=== PATIENT | female | born 1985 | race Caucasian/White ===

== ENCOUNTER 2017-09-01 18:41 | Observation (INO) ==
[2017-09-01 19:25] LABS: Bilirubin,Urine Negative (Negative); Blood,Urine Negative (Negative); Clarity,Urine Clear (Clear); Color,Urine Yellow (Yellow); Glucose,Urine (UA) Normal (Normal); Ketones,Urine Negative (Negative); Leukocyte Esterase,Urine Negative (Negative); Nitrite,Urine Negative (Negative); PH,Urine 6.5 pH Units (5.0-8.0); Protein,Urine Trace mg/dL (Neg-Trace); Specific Gravity,Urine 1.028 (1.010-1.025); Urobilinogen,Urine Normal (Normal)
[2017-09-01 19:28] LABS: Eosinophils % 3.2 %; Hematocrit 37.2 % (35.3-44.9); Hemoglobin 12.2 g/dL (11.5-15.4); Immature Granulocytes % 0.4 % (0-4); Lymphocytes % 17.1 %; Mean Corpuscular HGB Conc 32.8 g/dL (31.6-35.5); Mean Corpuscular Hemoglobin 32.4 pg (28.0-33.3); Mean Corpuscular Volume 98.7 fL (83.0-100.0); Mean Platelet Volume 9.1 fL (9.4-12.4); Monocytes % 6.1 %; Platelet Count 294 K/mcL (140-400); Red Blood Count 3.77 M/mcL (3.82-4.97); Red Cell Distribution Width 13.8 % (11.5-14.5); Segmented Neutrophils % 72.9 %
[2017-09-01 19:29] LABS: Hyaline Casts,Urine None Seen per lpf (None-Few); Squamous Epithelial Cell,Urine Many per lpf (None-Few)
[2017-09-01 19:29] LABS: Basophils % 0.3 %; Eosinophils # 0.4 K/mcL (0.0-0.6); Lymphocytes # 2.1 K/mcL (0.6-4.6); Monocytes # 0.8 K/mcL (0.0-1.3); Neutrophils # 8.9 K/mcL (1.6-8.9)
[2017-09-01 19:41] LABS: Bacteria,Urine Few per hpf (None-Few); RBC,Urine 0-3 per hpf (0-3)
[2017-09-01 19:45] LABS: Acetaminophen < 10 mcg/mL (10-20); BUN/Creatinine Ratio 13 (6-26); Blood Urea Nitrogen 15 mg/dL (6-20); Calcium 9.8 mg/dL (8.6-10.3); Carbon Dioxide 21 mEq/L (23-29); Chloride 112 mEq/L (98-107); Ethanol < 10 mg/dL (Less than 10); Glucose 105 mg/dL (70-105); Osmolality,Calculated 293 (280-300); Potassium 3.5 mEq/L (3.5-5.1); Salicylate < 2.5 mg/dL (15.0-30.0); Sodium 141 mEq/L (136-145); eGFR For African Americans > 60 (> 60); eGFR For Non-African Americans 56 (> 60)
[2017-09-01 19:46] LABS: Amphetamine Screen,Urine Negative ng/mL (Cutoff=1000); Barbiturate Screen,Urine Negative ng/mL (Cutoff=200); Benzodiazepines Screen,Urine Negative ng/mL (Cutoff=200); Cannabinoid Screen,Urine Negative ng/mL (Cutoff = 50); Cocaine Screen,Urine Negative ng/mL (Cutoff= 300); Opiate Screen,Urine Negative ng/mL (Cutoff=300); Phencyclidine Screen,Urine Negative ng/mL (Cutoff=25)
--- NOTE | 2017-09-01 21:21 | Emergency Department Note ---
Disposition Clinical Impression: Homicidal ideation Disposition: Admitted As Inpatient Condition: Fair Time of Disposition: 21:24 General Adult HPI - General Chief complaint: ED Psychiatric Symptoms Stated complaint: HI Time Seen by Provider: 09/01/17 19:16 Source: patient Mode of arrival: ambulatory Limitations: no limitations Nursing Notes Reviewed: Yes Vital Signs Reviewed: Yes - History of Present Illness HPI Narrative: Patient is a 32-year-old female with no pertinent past medical history presents today for evaluation of homicidal ideation. The patient states that she lives with her at this time and her has began dating another female and has moved her into the same home that they both occupy. She states that she wants to monitor her 's girlfriend, however she does not have a plan. She denies any suicidal ideation. Denies any visual or auditory hallucinations. She did recently undergo tubal ligation surgery in which she did incur a cellulitic infection of her surgical sites, however she is currently on an antibiotic regimen and the symptoms are improving. She denies any drug use or alcohol use. Pain Scale: 0 - Related Data Home Medications Medication Instructions Recorded Confirmed Aripiprazole [Abilify] 15 mg PO DAILY 09/01/17 09/01/17 Calcium Carbonate/Vitamin D3 1 tab PO DAILY 09/01/17 09/01/17 [Oyster Shell Calcium-Vit D Tab] Cetirizine HCl [Cetirizine HCl] 10 mg PO DAILY 09/01/17 09/01/17 Cyclobenzaprine [Flexeril] 10 mg PO TID PRN 09/01/17 09/01/17 DiphenhydraMINE [Benadryl] 25 mg PO Q6HR 09/01/17 09/01/17 Doxycycline Hyclate [Vibramycin] 100 mg PO BID 09/01/17 09/01/17 Fluticasone Propionate Nasal 1 spr NS DAILY 09/01/17 09/01/17 [Flonase] Gabapentin [Neurontin] 800 mg PO TID 09/01/17 09/01/17 Ibuprofen [Ibuprofen] 800 mg PO TID 09/01/17 09/01/17 [place]ena Carbonate ER [Eskalith] 900 mg PO HS 09/01/17 09/01/17 Melatonin [Melatonin] 6 mg PO HS 09/01/17 09/01/17 Montelukast [Singulair] 10 mg PO DAILY 09/01/17 09/01/17 Oxybutynin Chloride [Ditropan Xl] 5 mg PO DAILY 09/01/17 09/01/17 Prazosin HCl [Minipress] 6 mg PO HS 09/01/17 09/01/17 Propranolol HCl 80 mg PO DAILY 09/01/17 09/01/17 Ranitidine HCl [Acid Chemical Packager] 150 mg PO BID 09/01/17 09/01/17 clonazePAM [Klonopin] 1 mg PO TID 09/01/17 09/01/17 hydroCHLOROthiazide 12.5 mg PO DAILY 09/01/17 09/01/17 [Hydrochlorothiazide] Allergies Allergy/AdvReac Type Severity Reaction Status Date / Time cephalexin Allergy Severe Hives Verified 08/14/17 15:50 fluticasone [From Flonase] Allergy Hives Verified 08/21/17 19:54 All systems ED: reviewed and negative except as stated. Review of Systems: As Per HPI Constitutional: Denies: fever, chills Cardiovascular: Denies: chest pain, palpitations Respiratory: Denies: cough, dyspnea, wheezes Gastrointestinal: Denies: abdominal pain, nausea, vomiting Genitourinary: Denies: dysuria Psychiatric: Reports: homicidal thoughts. Denies: anxiety, suicidal thoughts, auditory hallucinations, visual hallucinations Past Medical History - Past Medical History Attestation: Yes The following information was validated with the patient. Medical history: Reports: other Surgical history: Reports: cholecystectomy, other (tubal ligation) Psychiatric history: Reports: anxiety, depression, previous psychiatric hospitalization [employer]ELD history: Reports: bilateral tubal ligation - Social History Smoking Status: Never smoker Smokeless Tobacco Status: No Alcohol use: Reports: none Drug use: Reports: none Physical Exam CONSTITUTIONAL: Alert and oriented X3, well-nourished, well appearing, in no apparent distress HEAD: Normocephalic; atraumatic. EYES: PERRL, no scleral icterus. NOSE: The nose is normal in appearance without rhinorrhea RESP: Normal chest excursion with respiration; breath sounds clear and equal bilaterally; no wheezes, rhonchi, or rales CARD: Regular rhythm, without murmurs, rub or gallop ABD: Non-distended; non-tender, soft,without rigidity, rebound or guarding SKIN: Two well-healing wound from recent surgery in the suprapubic region with no drainage, erythema, induration, fluctuance or drainage. SKIN: Normal for age and race; warm and dry; no apparent lesionsPSYCH: Denies visual or auditory hallucinations. Flat affect. Admits to homicidal ideation. No SI. - General Limitations: no limitations General appearance: alert Course Course Narrative: Patient is here for homicidal ideation towards her 's girlfriend. She is medically cleared and her drug screen workup was negative. Currently being seen by one a nurse which will determine patient's disposition. - Reevaluation(s) Reevaluation #1: 1A nurse states patient will be accepted to the floor. Time: 21:28 Vital Signs Temperature 82 F L 09/01/17 18:47 Pulse Rate 82 09/01/17 18:47 Respiratory Rate 16 09/01/17 18:47 Blood Pressure 131/85 09/01/17 18:47 O2 Sat by Pulse Oximetry 99 09/01/17 18:47 Temperature 82 F L 09/01/17 19:12 Pulse Rate 82 09/01/17 19:12 Respiratory Rate 16 09/01/17 19:12 Blood Pressure 131/85 09/01/17 19:12 O2 Sat by Pulse Oximetry 99 09/01/17 19:12 Oxygen Delivery Oxygen Delivery Room Air Medical Decision Making - Medical Records Medical records reviewed: Yes I reviewed the patient's medical records. - Lab Data Lab results reviewed: Yes I reviewed the patient's lab results. Result diagrams: 09/01/17 19:11 09/01/17 19:11 Lab Results 09/01/17 09/01/17 09/01/17 Range/Units 19:01 19:01 19:11 WBC 12.2 H (4.3-11.1) K/mcL RBC 3.77 L (3.82-4.97) M/mcL Hgb 12.2 (11.5-15.4) g/dL Hct 37.2 (35.3-44.9) % MCV 98.7 (83.0-100.0) fL MCH 32.4 (28.0-33.3) pg MCHC 32.8 (31.6-35.5) g/dL RDW 13.8 (11.5-14.5) % Plt Count 294 (140-400) K/mcL MPV 9.1 L (9.4-12.4) fL Immature Gran % 0.4 (0-4) % Seg Neutrophils % 72.9 % Lymphocytes % 17.1 % Monocytes % 6.1 % Eosinophils % 3.2 % Basophils % 0.3 % Neutrophils # 8.9 (1.6-8.9) K/mcL Lymphocytes # 2.1 (0.6-4.6) K/mcL Monocytes # 0.8 (0.0-1.3) K/mcL Eosinophils # 0.4 (0.0-0.6) K/mcL Basophils # 0.0 (0.0-0.2) K/mcL Sodium (136-145) mEq/L Potassium (3.5-5.1) mEq/L Chloride (98-107) mEq/L Carbon Dioxide (23-29) mEq/L BUN (6-20) mg/dL Creatinine (0.60-1.20) mg/dL Est GFR ( Amer) (> 60) Est GFR (Non-Af Amer) (> 60) BUN/Creatinine Ratio (6-26) Glucose (70-105) mg/dL Calculated Osmolality (280-300) Calcium (8.6-10.3) mg/dL Urine Color Yellow (Yellow) Urine Clarity Clear (Clear) Urine pH 6.5 (5.0-8.0) pH Units Ur Specific [place] 1.028 H (1.010-1.025) Urine Protein Trace (Neg-Trace) mg/dL Urine Glucose (UA) Normal (Normal) mg/dL Urine Ketones Negative (Negative) mg/dL Urine Blood Negative (Negative) Urine Nitrite Negative (Negative) Urine Bilirubin Negative (Negative) Urine Urobilinogen Normal (Normal) mg/dL Ur Leukocyte Esterase Negative (Negative) Urine Microscopic RBC 0-3 (0-3) per hpf Urine Microscopic WBC 3-5 H (0-3) per hpf Ur Squamous Epith Cells Many H (None-Few) per lpf Urine Bacteria Few (None-Few) per hpf Hyaline Casts None Seen (None-Few) per lpf Salicylates (15.0-30.0) mg/dL Urine Opiates Screen Negative (Gdgcmx=234) ng/mL Acetaminophen (10-20) mcg/mL Ur Barbiturates Screen Negative (Tbfdms=202) ng/mL Ur Phencyclidine Scrn Negative (Cutoff=25) ng/mL Ur Amphetamines Screen Negative (Zfqmuu=9787) ng/mL U Benzodiazepines Scrn Negative (Qmxjkn=517) ng/mL [place] (0.6-1.2) mEq/L Urine Cocaine Screen Negative (Cutoff= 300) ng/mL U Marijuana (THC) Screen Negative (Cutoff = 50) ng/mL Ur Drug Screen Interp See Below Ethyl Alcohol (Less than 10) mg/dL 09/01/17 09/01/17 Range/Units 19:11 19:11 WBC (4.3-11.1) K/mcL RBC (3.82-4.97) M/mcL Hgb (11.5-15.4) g/dL Hct (35.3-44.9) % MCV (83.0-100.0) fL MCH (28.0-33.3) pg MCHC (31.6-35.5) g/dL RDW (11.5-14.5) % Plt Count (140-400) K/mcL MPV (9.4-12.4) fL Immature Gran % (0-4) % Seg Neutrophils % % Lymphocytes % % Monocytes % % Eosinophils % % Basophils % % Neutrophils # (1.6-8.9) K/mcL Lymphocytes # (0.6-4.6) K/mcL Monocytes # (0.0-1.3) K/mcL Eosinophils # (0.0-0.6) K/mcL Basophils # (0.0-0.2) K/mcL Sodium 141 (136-145) mEq/L Potassium 3.5 (3.5-5.1) mEq/L Chloride 112 H (98-107) mEq/L Carbon Dioxide 21 L (23-29) mEq/L BUN 15 (6-20) mg/dL Creatinine 1.12 (0.60-1.20) mg/dL Est GFR ( Amer) > 60 (> 60) Est GFR (Non-Af Amer) 56 L (> 60) BUN/Creatinine Ratio 13 (6-26) Glucose 105 (70-105) mg/dL Calculated Osmolality 293 (280-300) Calcium 9.8 (8.6-10.3) mg/dL Urine Color (Yellow) Urine Clarity (Clear) Urine pH (5.0-8.0) pH Units Ur Specific [place] (1.010-1.025) Urine Protein (Neg-Trace) mg/dL Urine Glucose (UA) (Normal) mg/dL Urine Ketones (Negative) mg/dL Urine Blood (Negative) Urine Nitrite (Negative) Urine Bilirubin (Negative) Urine Urobilinogen (Normal) mg/dL Ur Leukocyte Esterase (Negative) Urine Microscopic RBC (0-3) per hpf Urine Microscopic WBC (0-3) per hpf Ur Squamous Epith Cells (None-Few) per lpf Urine Bacteria (None-Few) per hpf Hyaline Casts (None-Few) per lpf Salicylates < 2.5 L (15.0-30.0) mg/dL Urine Opiates Screen (Cyxblf=988) ng/mL Acetaminophen < 10 L (10-20) mcg/mL Ur Barbiturates Screen (Unkato=322) ng/mL Ur Phencyclidine Scrn (Cutoff=25) ng/mL Ur Amphetamines Screen (Yltuvw=9915) ng/mL U Benzodiazepines Scrn (Qsotzg=003) ng/mL [place] 0.5 L (0.6-1.2) mEq/L Urine Cocaine Screen (Cutoff= 300) ng/mL U Marijuana (THC) Screen (Cutoff = 50) ng/mL Ur Drug Screen Interp Ethyl Alcohol < 10 (Less than 10) mg/dL
--- NOTE | 2017-09-01 21:36 | Emergency Department Note ---
Disposition Clinical Impression: Homicidal ideation Disposition: Admitted As Inpatient Condition: Fair Referrals: NONE,PCP [Primary Care Provider] - Forms: ED Satisfaction Letter General Adult HPI - General Chief complaint: ED Psychiatric Symptoms Stated complaint: HI Time Seen by Provider: 09/01/17 19:16 Source: patient Mode of arrival: ambulatory Limitations: no limitations Nursing Notes Reviewed: Yes Vital Signs Reviewed: Yes - History of Present Illness Pain Scale: 0 - Related Data Home Medications Medication Instructions Recorded Confirmed Gabapentin 800 mg PO TID 01/01/17 08/21/17 Klonopin 1 mg PO DAILY 01/01/17 08/21/17 [place] 300 mg PO TID 01/01/17 08/21/17 ARIPiprazole [Abilify] 10 mg PO DAILY 08/21/17 08/21/17 Cetirizine HCl [Zyrtec] 10 mg PO DAILY 08/21/17 08/21/17 DiphenhydraMINE [Benadryl] 25 mg PO HS 08/21/17 08/21/17 Ergotamine Tartrate/Caffeine 1 - 100 mg PO DAILY 08/21/17 08/21/17 [Cafergot Tablet] Ibuprofen [Ibu] 800 mg PO TID 08/21/17 08/21/17 Oxybutynin [Ditropan] 5 mg PO DAILY 08/21/17 08/21/17 Propranolol HCl [Innopran Xl] 80 mg PO DAILY 08/21/17 08/21/17 raNITIdine HCl [Zantac] 150 mg PO DAILY 08/21/17 08/21/17 Previous Rx's Medication Instructions Recorded DiphenhydraMINE [Benadryl] 25 mg PO Q6HR #28 capsule 08/28/17 Doxycycline 100 mg PO BID #10 capsule 08/28/17 Allergies Allergy/AdvReac Type Severity Reaction Status Date / Time cephalexin Allergy Severe Hives Verified 08/14/17 15:50 fluticasone [From Flonase] Allergy Hives Verified 08/21/17 19:54 Constitutional: Denies: fever, chills Cardiovascular: Denies: chest pain, palpitations Respiratory: Denies: cough, dyspnea, wheezes Gastrointestinal: Denies: abdominal pain, nausea, vomiting Genitourinary: Denies: dysuria Psychiatric: Reports: homicidal thoughts. 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 - Social History Smoking Status: Never smoker Smokeless Tobacco Status: No Alcohol use: Reports: none Drug use: Reports: none Physical Exam - General Limitations: no limitations General appearance: alert Course Vital Signs Temperature 82 F L 09/01/17 18:47 Pulse Rate 82 09/01/17 18:47 Respiratory Rate 16 09/01/17 18:47 Blood Pressure 131/85 09/01/17 18:47 O2 Sat by Pulse Oximetry 99 09/01/17 18:47 Temperature 82 F L 09/01/17 19:12 Pulse Rate 82 09/01/17 19:12 Respiratory Rate 16 09/01/17 19:12 Blood Pressure 131/85 09/01/17 19:12 O2 Sat by Pulse Oximetry 99 09/01/17 19:12 Oxygen Delivery Oxygen Delivery Room Air Medical Decision Making - Lab Data Result diagrams: 09/01/17 19:11 09/01/17 19:11 Lab Results 09/01/17 09/01/17 09/01/17 Range/Units 19:01 19:01 19:11 WBC 12.2 H (4.3-11.1) K/mcL RBC 3.77 L (3.82-4.97) M/mcL Hgb 12.2 (11.5-15.4) g/dL Hct 37.2 (35.3-44.9) % MCV 98.7 (83.0-100.0) fL MCH 32.4 (28.0-33.3) pg MCHC 32.8 (31.6-35.5) g/dL RDW 13.8 (11.5-14.5) % Plt Count 294 (140-400) K/mcL MPV 9.1 L (9.4-12.4) fL Immature Gran % 0.4 (0-4) % Seg Neutrophils % 72.9 % Lymphocytes % 17.1 % Monocytes % 6.1 % Eosinophils % 3.2 % Basophils % 0.3 % Neutrophils # 8.9 (1.6-8.9) K/mcL Lymphocytes # 2.1 (0.6-4.6) K/mcL Monocytes # 0.8 (0.0-1.3) K/mcL Eosinophils # 0.4 (0.0-0.6) K/mcL Basophils # 0.0 (0.0-0.2) K/mcL Sodium (136-145) mEq/L Potassium (3.5-5.1) mEq/L Chloride (98-107) mEq/L Carbon Dioxide (23-29) mEq/L BUN (6-20) mg/dL Creatinine (0.60-1.20) mg/dL Est GFR ( Amer) (> 60) Est GFR (Non-Af Amer) (> 60) BUN/Creatinine Ratio (6-26) Glucose (70-105) mg/dL Calculated Osmolality (280-300) Calcium (8.6-10.3) mg/dL Urine Color Yellow (Yellow) Urine Clarity Clear (Clear) Urine pH 6.5 (5.0-8.0) pH Units Ur Specific [place] 1.028 H (1.010-1.025) Urine Protein Trace (Neg-Trace) mg/dL Urine Glucose (UA) Normal (Normal) mg/dL Urine Ketones Negative (Negative) mg/dL Urine Blood Negative (Negative) Urine Nitrite Negative (Negative) Urine Bilirubin Negative (Negative) Urine Urobilinogen Normal (Normal) mg/dL Ur Leukocyte Esterase Negative (Negative) Urine Microscopic RBC 0-3 (0-3) per hpf Urine Microscopic WBC 3-5 H (0-3) per hpf Ur Squamous Epith Cells Many H (None-Few) per lpf Urine Bacteria Few (None-Few) per hpf Hyaline Casts None Seen (None-Few) per lpf Salicylates (15.0-30.0) mg/dL Urine Opiates Screen Negative (Fovodh=372) ng/mL Acetaminophen (10-20) mcg/mL Ur Barbiturates Screen Negative (Nalbln=426) ng/mL Ur Phencyclidine Scrn Negative (Cutoff=25) ng/mL Ur Amphetamines Screen Negative (Rmtyxb=5559) ng/mL U Benzodiazepines Scrn Negative (Fwtoeu=688) ng/mL Urine Cocaine Screen Negative (Cutoff= 300) ng/mL U Marijuana (THC) Screen Negative (Cutoff = 50) ng/mL Ur Drug Screen Interp See Below Ethyl Alcohol (Less than 10) mg/dL 09/01/17 Range/Units 19:11 WBC (4.3-11.1) K/mcL RBC (3.82-4.97) M/mcL Hgb (11.5-15.4) g/dL Hct (35.3-44.9) % MCV (83.0-100.0) fL MCH (28.0-33.3) pg MCHC (31.6-35.5) g/dL RDW (11.5-14.5) % Plt Count (140-400) K/mcL MPV (9.4-12.4) fL Immature Gran % (0-4) % Seg Neutrophils % % Lymphocytes % % Monocytes % % Eosinophils % % Basophils % % Neutrophils # (1.6-8.9) K/mcL Lymphocytes # (0.6-4.6) K/mcL Monocytes # (0.0-1.3) K/mcL Eosinophils # (0.0-0.6) K/mcL Basophils # (0.0-0.2) K/mcL Sodium 141 (136-145) mEq/L Potassium 3.5 (3.5-5.1) mEq/L Chloride 112 H (98-107) mEq/L Carbon Dioxide 21 L (23-29) mEq/L BUN 15 (6-20) mg/dL Creatinine 1.12 (0.60-1.20) mg/dL Est GFR ( Amer) > 60 (> 60) Est GFR (Non-Af Amer) 56 L (> 60) BUN/Creatinine Ratio 13 (6-26) Glucose 105 (70-105) mg/dL Calculated Osmolality 293 (280-300) Calcium 9.8 (8.6-10.3) mg/dL Urine Color (Yellow) Urine Clarity (Clear) Urine pH (5.0-8.0) pH Units Ur Specific [place] (1.010-1.025) Urine Protein (Neg-Trace) mg/dL Urine Glucose (UA) (Normal) mg/dL Urine Ketones (Negative) mg/dL Urine Blood (Negative) Urine Nitrite (Negative) Urine Bilirubin (Negative) Urine Urobilinogen (Normal) mg/dL Ur Leukocyte Esterase (Negative) Urine Microscopic RBC (0-3) per hpf Urine Microscopic WBC (0-3) per hpf Ur Squamous Epith Cells (None-Few) per lpf Urine Bacteria (None-Few) per hpf Hyaline Casts (None-Few) per lpf Salicylates < 2.5 L (15.0-30.0) mg/dL Urine Opiates Screen (Nhhsau=160) ng/mL Acetaminophen < 10 L (10-20) mcg/mL Ur Barbiturates Screen (Hsdjey=642) ng/mL Ur Phencyclidine Scrn (Cutoff=25) ng/mL Ur Amphetamines Screen (Zeoeep=7130) ng/mL U Benzodiazepines Scrn (Qhnjpj=110) ng/mL Urine Cocaine Screen (Cutoff= 300) ng/mL U Marijuana (THC) Screen (Cutoff = 50) ng/mL Ur Drug Screen Interp Ethyl Alcohol < 10 (Less than 10) mg/dL Attestation Statement - Attestation Attestation: I, Julio César Mcleod MD, personally evaluated this patient and discussed their management with the resident physician. I reviewed the resident's note and agree with the documented findings, medical decision making, and plan of care. 32-year-old female presents to the emergency department with a complaint of homicidal ideations towards her and her 's girlfriend. She states that her moved his girlfriend into their home where she is still living and they are "doing things in front of me and I want to kill them both". She denies any suicidal ideation. No specific plan for harming her and his girlfriend. No physical complaints. On examination patient is a well-developed obese female in no acute distress. She is alert and oriented 3. There is no cyanosis or diaphoresis. Breath sounds are clear and equal bilaterally. Heart regular rate and rhythm. Abdomen soft and nontender with normal bowel sounds. No gross focal neurological deficits. Labs reviewed. Patiently medically cleared for psychiatric evaluation. She was evaluated in the emergency department by the [address] psychiatry service and is being admitted to the [address] psychiatric unit.
[2017-09-02] MEDS ORDERED: hydrOXYzine pamoate 25 MG CAPSULE PO PRN (03:34)
[2017-09-02] MEDS ORDERED: MOM Conc 10 ML UD.LIQ PO PRN (03:34)
[2017-09-02] MEDS ORDERED: *HR* LORazepam 2 MG/ML VIAL IM PRN (03:34)
[2017-09-02] MEDS ORDERED: traZODone 50 MG TABLET PO PRN (03:34)
[2017-09-02] MEDS ORDERED: Mag Hydrox/Al Hydrox/Simeth 30 ML UDC PO PRN (03:34)
[2017-09-02] MEDS ORDERED: Haloperidol Lactate 5 MG/ML VIAL IM PRN (03:34)
[2017-09-02] MEDS ORDERED: *HR* LORazepam 1 MG TABLET PO PRN (03:34)
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
[2017-09-02] MEDS ORDERED: clonazePAM 1 MG TABLET PO PRN (12:34)
[2017-09-02] MEDS: ARIPiprazole 10 MG TABLET PO SCH (13:18)
[2017-09-02] MEDS: Famotidine 20 MG TABLET PO SCH (17:27)
[2017-09-02] MEDS ORDERED: Melatonin 3 MG TABLET PO SCH (21:00)
[2017-09-02] MEDS ORDERED: Lithium Carbonate 300 MG CAPSULE PO SCH (21:00)
[2017-09-03] MEDS: Ibuprofen 400 MG TABLET PO PRN ×2 (05:50→09:27)
[2017-09-03] MEDS: Famotidine 20 MG TABLET PO SCH (08:04)
[2017-09-03] MEDS: ARIPiprazole 10 MG TABLET PO SCH (08:05)
[2017-09-03 08:34] VITALS: BP 105/67
[2017-09-03] MEDS ORDERED: ARIPiprazole 10 MG TABLET PO SCH (09:00)
[2017-09-03] MEDS ORDERED: Loratadine 10 MG TABLET PO SCH (09:00)
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
== END 2017-09-03 10:00 | disposition home or self-care (01) ==
LOC: EMEROO 18:41 → INTOOBSV 21:37 → 1ANU 21:37
PROVIDERS: ADMIT Psychiatry & Neurology Forensic Psychiatry; ATTEND Psychiatry & Neurology Forensic Psychiatry

== ENCOUNTER 2018-07-10 13:12 | Inpatient (IN) ==
--- NOTE | 2018-07-10 13:53 | Emergency Department Note ---
Disposition Clinical Impression: Acute anxiety, Depression Disposition: Admitted As Inpatient Condition: Undetermined General Adult HPI - General Chief complaint: ED Psychiatric Symptoms Stated complaint: psych eval, depression Time Seen by Provider: 07/10/18 13:46 Source: patient Limitations: no limitations - History of Present Illness Pain Scale: 0 - Related Data Home Medications Medication Instructions Recorded Confirmed Calcium Carbonate/Vitamin D3 1 tab PO DAILY 09/01/17 09/01/17 [Oyster Shell Calcium-Vit D Tab] Cetirizine HCl 10 mg PO DAILY 09/01/17 07/10/18 Cyclobenzaprine [Flexeril] 10 mg PO HS 09/01/17 07/10/18 DiphenhydraMINE [Benadryl] 25 mg PO BID PRN 09/01/17 07/10/18 Ibuprofen 800 mg PO TID PRN 09/01/17 07/10/18 Melatonin 6 mg PO HS 09/01/17 07/10/18 Prazosin HCl [Minipress] 2 mg PO HS 09/01/17 07/10/18 Propranolol HCl 80 mg PO DAILY 09/01/17 07/10/18 Ranitidine HCl [Acid Truck Switcher] 150 mg PO BID 09/01/17 07/10/18 clonazePAM [Klonopin] 1 mg PO BID PRN 09/01/17 07/10/18 Acetaminophen with Codeine 1 tab PO Q4-6H PRN 07/10/18 07/10/18 [Acetaminophen-Cod #3 Tablet] Albuterol Sulfate [Albuterol 1 puff IH Q6H PRN 07/10/18 07/10/18 Inhaler] Amoxicillin [Amoxil] 500 mg PO TID 07/10/18 07/10/18 Desvenlafaxine Succinate 50 mg PO DAILY 07/10/18 07/10/18 [Desvenlafaxine Succinate ER] [place] Carbonate 900 mg PO HS 07/10/18 07/10/18 cloNIDine HCl [CloNIDine HCl] 0.1 mg PO DAILY PRN 07/10/18 07/10/18 hydrOXYzine pamoate [HydrOXYzine 50 mg PO BID PRN 07/10/18 07/10/18 Pamoate] Allergies Allergy/AdvReac Type Severity Reaction Status Date / Time cephalexin Allergy Severe Hives Verified 05/11/18 10:35 fluticasone [From Flonase] Allergy Hives Verified 05/11/18 10:35 Past Medical History - Past Medical History Medical history: Reports: no medical history Surgical history: Reports: cholecystectomy, other (tubal ligation) Psychiatric history: Reports: previous psychiatric hospitalization 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 - Social History Smoking Status: Never smoker Smokeless Tobacco Status: No Alcohol use: Reports: none Drug use: Reports: none Physical Exam - General Limitations: no limitations General appearance: alert Course Vital Signs Temperature 98.6 F 07/10/18 13:14 Pulse Rate 111 07/10/18 13:14 Respiratory Rate 18 07/10/18 13:14 Blood Pressure 153/103 07/10/18 13:14 O2 Sat by Pulse Oximetry 96 07/10/18 13:14 Temperature 98.4 F 07/11/18 20:44 Pulse Rate 88 07/11/18 20:44 Respiratory Rate 16 07/11/18 20:44 Blood Pressure 125/90 07/11/18 20:44 O2 Sat by Pulse Oximetry 99 07/11/18 20:44 Oxygen Delivery Oxygen Delivery Room Air Medical Decision Making - Lab Data Result diagrams: 07/10/18 14:00 07/10/18 14:00 Lab Results 07/10/18 07/10/18 07/10/18 Range/Units 14:00 14:00 14:00 WBC 13.8 H (4.3-11.1) K/mcL RBC 4.77 (3.82-4.97) M/mcL Hgb 15.2 (11.5-15.4) g/dL Hct 44.7 (35.3-44.9) % MCV 93.7 (83.0-100.0) fL MCH 31.9 (28.0-33.3) pg MCHC 34.0 (31.6-35.5) g/dL RDW 13.4 (11.5-14.5) % Plt Count 366 (140-400) K/mcL MPV 8.8 L (9.4-12.4) fL Immature Gran % 0.2 (0-4) % Seg Neutrophils % 70.1 % Lymphocytes % 20.0 % Monocytes % 8.2 % Eosinophils % 1.1 % Basophils % 0.4 % Neutrophils # 9.7 H (1.6-8.9) K/mcL Lymphocytes # 2.8 (0.6-4.6) K/mcL Monocytes # 1.1 (0.0-1.3) K/mcL Eosinophils # 0.2 (0.0-0.6) K/mcL Basophils # 0.1 (0.0-0.2) K/mcL Sodium 141 (136-145) mEq/L Potassium 3.4 L (3.5-5.1) mEq/L Chloride 108 H (98-107) mEq/L Carbon Dioxide 20 L (23-29) mEq/L BUN 10 (6-20) mg/dL Creatinine 0.75 (0.60-1.20) mg/dL Est GFR ( Amer) > 60 (> 60) Est GFR (Non-Af Amer) > 60 (> 60) BUN/Creatinine Ratio 13 (6-26) Glucose 107 H (70-105) mg/dL Calculated Osmolality 292 (280-300) Calcium 10.3 (8.6-10.3) mg/dL Total Bilirubin 0.9 (0.3-1.0) mg/dL Direct Bilirubin 0.2 (0.0-0.2) mg/dL Indirect Bilirubin 0.7 (0.0-1.2) mg/dL AST 19 (13-39) Units/L ALT 48 (7-52) Units/L Alkaline Phosphatase 128 H (34-104) Units/L Serum Total Protein 8.3 (6.4-8.9) g/dL Albumin 4.7 (3.5-5.7) g/dL Globulin 3.6 H (2.4-3.5) g/dL Albumin/Globulin Ratio 1.3 (1.1-2.2) Lipase 22 (11-82) Units/L Urine Color (Yellow) Urine Clarity (Clear) Urine pH (5.0-8.0) pH Units Ur Specific [place] (1.010-1.025) Urine Protein (Neg-Trace) mg/dL Urine Glucose (UA) (Normal) mg/dL Urine Ketones (Negative) mg/dL Urine Blood (Negative) Urine Nitrite (Negative) Urine Bilirubin (Negative) Urine Urobilinogen (Normal) mg/dL Ur Leukocyte Esterase (Negative) Urine Microscopic RBC (0-3) per hpf Urine Microscopic WBC (0-3) per hpf Ur Squamous Epith Cells (None-Few) per lpf Urine Bacteria (None-Few) per hpf Hyaline Casts (None-Few) per lpf Urine Mucus (Few) Ur Culture Indicated? (NO) Urine Test (Negative) Salicylates < 2.5 L (15.0-30.0) mg/dL Urine Opiates Screen (Vianvq=221) ng/mL Acetaminophen < 10 L (10-20) mcg/mL Ur Barbiturates Screen (Qpxglf=123) ng/mL Ur Phencyclidine Scrn (Cutoff=25) ng/mL Ur Amphetamines Screen (Hvpfyo=9035) ng/mL U Benzodiazepines Scrn (Hmagfq=521) ng/mL [place] 0.4 L (0.6-1.2) mEq/L Urine Cocaine Screen (Cutoff= 300) ng/mL U Marijuana (THC) Screen (Cutoff = 50) ng/mL Ur Drug Screen Interp Ethyl Alcohol < 10 (Less than 10) mg/dL 07/10/18 07/10/18 07/10/18 Range/Units 14:50 14:50 14:50 WBC (4.3-11.1) K/mcL RBC (3.82-4.97) M/mcL Hgb (11.5-15.4) g/dL Hct (35.3-44.9) % MCV (83.0-100.0) fL MCH (28.0-33.3) pg MCHC (31.6-35.5) g/dL RDW (11.5-14.5) % Plt Count (140-400) K/mcL MPV (9.4-12.4) fL Immature Gran % (0-4) % Seg Neutrophils % % Lymphocytes % % Monocytes % % Eosinophils % % Basophils % % Neutrophils # (1.6-8.9) K/mcL Lymphocytes # (0.6-4.6) K/mcL Monocytes # (0.0-1.3) K/mcL Eosinophils # (0.0-0.6) K/mcL Basophils # (0.0-0.2) K/mcL Sodium (136-145) mEq/L Potassium (3.5-5.1) mEq/L Chloride (98-107) mEq/L Carbon Dioxide (23-29) mEq/L BUN (6-20) mg/dL Creatinine (0.60-1.20) mg/dL Est GFR ( Amer) (> 60) Est GFR (Non-Af Amer) (> 60) BUN/Creatinine Ratio (6-26) Glucose (70-105) mg/dL Calculated Osmolality (280-300) Calcium (8.6-10.3) mg/dL Total Bilirubin (0.3-1.0) mg/dL Direct Bilirubin (0.0-0.2) mg/dL Indirect Bilirubin (0.0-1.2) mg/dL AST (13-39) Units/L ALT (7-52) Units/L Alkaline Phosphatase (34-104) Units/L Serum Total Protein (6.4-8.9) g/dL Albumin (3.5-5.7) g/dL Globulin (2.4-3.5) g/dL Albumin/Globulin Ratio (1.1-2.2) Lipase (11-82) Units/L Urine Color Dark Yellow (Yellow) Urine Clarity Turbid A (Clear) Urine pH 7.0 (5.0-8.0) pH Units Ur Specific [place] 1.024 (1.010-1.025) Urine Protein 100 H (Neg-Trace) mg/dL Urine Glucose (UA) Normal (Normal) mg/dL Urine Ketones 40 H (Negative) mg/dL Urine Blood Negative (Negative) Urine Nitrite Negative (Negative) Urine Bilirubin Small H (Negative) Urine Urobilinogen Normal (Normal) mg/dL Ur Leukocyte Esterase Trace H (Negative) Urine Microscopic RBC 0-3 (0-3) per hpf Urine Microscopic WBC 5-15 H (0-3) per hpf Ur Squamous Epith Cells Many H (None-Few) per lpf Urine Bacteria Many H (None-Few) per hpf Hyaline Casts None Seen (None-Few) per lpf Urine Mucus Moderate H (Few) Ur Culture Indicated? YES A (NO) Urine Test Negative (Negative) Salicylates (15.0-30.0) mg/dL Urine Opiates Screen Positive H (Xqetrm=750) ng/mL Acetaminophen (10-20) mcg/mL Ur Barbiturates Screen Negative (Tybjox=035) ng/mL Ur Phencyclidine Scrn Negative (Cutoff=25) ng/mL Ur Amphetamines Screen Negative (Rrzujw=5795) ng/mL U Benzodiazepines Scrn Negative (Kwtzdy=443) ng/mL [place] (0.6-1.2) mEq/L Urine Cocaine Screen Negative (Cutoff= 300) ng/mL U Marijuana (THC) Screen Negative (Cutoff = 50) ng/mL Ur Drug Screen Interp See Below Ethyl Alcohol (Less than 10) mg/dL Attestation Statement - Attestation Attestation: I reviewed the residents documentation and agree with the residents assessment and plan of care. I have personally had face to face time with the patient. (Brief History, Brief Exam, and MDM) I personally supervised and was present for the landaverde/critical portions of the following procedures completed by the resident: (add procedures performed here). [id number] time provided Patient arrives tearful and anxious. She admits to being depressed. She is not suicidal. We will attempt to clear her medically for mental health evaluation
--- NOTE | 2018-07-10 13:57 | Emergency Department Note ---
Disposition Clinical Impression: Acute anxiety Depression Qualifiers: Depression Type: unspecified Qualified Code(s): F32.9 - Major depressive disorder, single episode, unspecified Disposition: Still a Patient Condition: Undetermined Referrals: Nena Wyman [Advanced Practice Nurse] - Forms: ED Satisfaction Letter Time of Disposition: 17:02 Psych HPI - General Chief Complaint: ED Psychiatric Symptoms Stated Complaint: psych eval, depression Time Seen by Provider: 07/10/18 13:46 Source: patient Limitations: altered mental status Nursing Notes Reviewed: Yes Vital Signs Reviewed: Yes - History of Present Illness HPI Narrative: 33-year-old female past medical history of anxiety, depression, PTSD, bipolar disorder noncompliant with medication presenting for 2-3 day history of increasing psychiatric symptoms including weeping, sleep loss, rocking back and forth, paranoia. Patient caregiver in room states that she has been living with him for the past 2-3 weeks after being evicted from her [id number] home. Full patient medication list is unknown at this time and patient has been noncompliant with her full medication regimen due to the of infection and not having all of her medications. Patient denies any chest pain, shortness of breath, neck or back pain, abdominal pain/nausea/vomiting numbness or paresthesias. Patient states that "I just want to be admitted to the hospital to get back on my meds so that I can feel better." Patient denies suicide attempt, homicidal or suicidal ideation. Pt complaint: feels depressed, anxiety Onset (ago): day(s) Duration: getting worse Alleged intoxication: No Associated Psychiatric Symptoms: depression, anxiety Associated symptoms: Reports: denies other symptoms Traumatic symptoms: denies traumatic injury Self harm or harm to others: denies thoughts of harming self/others, denies having a plan - Related Data Home Medications Medication Instructions Recorded Confirmed Aripiprazole [Abilify] 15 mg PO DAILY 09/01/17 09/01/17 Calcium Carbonate/Vitamin D3 1 tab PO DAILY 09/01/17 09/01/17 [Oyster Shell Calcium-Vit D Tab] Cetirizine HCl 10 mg PO DAILY 09/01/17 09/01/17 Cyclobenzaprine [Flexeril] 10 mg PO TID PRN 09/01/17 09/01/17 DiphenhydraMINE [Benadryl] 25 mg PO Q6HR 09/01/17 09/01/17 Doxycycline Hyclate [Vibramycin] 100 mg PO BID 09/01/17 09/01/17 Fluticasone Propionate Nasal 1 spr NS DAILY 09/01/17 09/01/17 [Flonase] Gabapentin [Neurontin] 800 mg PO TID 09/01/17 09/01/17 Ibuprofen 800 mg PO TID 09/01/17 09/01/17 [place] Carbonate ER [Eskalith] 900 mg PO HS 09/01/17 09/01/17 Melatonin 6 mg PO HS 09/01/17 09/01/17 Montelukast [Singulair] 10 mg PO DAILY 09/01/17 09/01/17 Oxybutynin Chloride [Ditropan Xl] 5 mg PO DAILY 09/01/17 09/01/17 Prazosin HCl [Minipress] 6 mg PO HS 09/01/17 09/01/17 Propranolol HCl 80 mg PO DAILY 09/01/17 09/01/17 Ranitidine HCl [Acid Layboy Tender] 150 mg PO BID 09/01/17 09/01/17 clonazePAM [Klonopin] 1 mg PO TID 09/01/17 09/01/17 hydroCHLOROthiazide 12.5 mg PO DAILY 09/01/17 09/01/17 [Hydrochlorothiazide] Previous Rx's Medication Instructions Recorded Nitrofurantoin (BID) [Macrobid] 100 mg PO BID #20 capsule 01/12/18 Phenazopyridine [Pyridium] 100 mg PO TID #6 tablet 01/12/18 Benzonatate [Tessalon] 100 mg PO TID #9 capsule 05/11/18 Allergies Allergy/AdvReac Type Severity Reaction Status Date / Time cephalexin Allergy Severe Hives Verified 05/11/18 10:35 fluticasone [From Flonase] Allergy Hives Verified 05/11/18 10:35 Review of Systems: Cardiovascular: Denies: chest pain Respiratory: Denies: dyspnea Gastrointestinal: Denies: abdominal pain, nausea, vomiting Musculoskeletal: Denies: back pain, neck pain Neurological: Denies: headache, weakness, numbness, paresthesias All systems ED: reviewed and negative except as stated. 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 Absent: scleral icterus, conjunctival injection, nystagmus, miosis, mydriasis - Neck Neck exam: Present: normal inspection, trachea midline - Chest Chest inspection: Present: normal inspection, symmetric chest wall rise - Respiratory Respiratory exam: Present: normal lung sounds bilaterally. Absent: respiratory distress, wheezes, stridor, accessory muscle use, prolonged expiratory phase - Cardiovascular Cardiovascular exam: Present: regular rate, normal rhythm, normal heart sounds, +S1, +S2. Absent: systolic murmur, diastolic murmur, rubs, gallop, clicks, JVD, +S3, +S4 - Extremities Exam Extremities exam: Present: normal inspection. Absent: pedal edema - Neurological Exam Neurological exam: Present: alert - Psychiatric Psychiatric exam: Present: anxious - Skin Skin exam: Present: warm, dry, intact, normal color, rash. Absent: cyanosis, diaphoresis, erythema, pallor, mottled Course Course Narrative: Likely admit to psychiatric services Abdominal/cardiac labs and lithium level to rule out metabolic pathology 0.5 mg Xanax by mouth for the management of patient anxiety Vital Signs Temperature 98.6 F 07/10/18 13:14 Pulse Rate 111 07/10/18 13:14 Respiratory Rate 18 07/10/18 13:14 Blood Pressure 153/103 07/10/18 13:14 O2 Sat by Pulse Oximetry 96 07/10/18 13:14 Temperature 98.6 F 07/10/18 13:14 Pulse Rate 111 07/10/18 13:14 Respiratory Rate 18 07/10/18 13:14 Blood Pressure 153/103 07/10/18 13:14 O2 Sat by Pulse Oximetry 96 07/10/18 13:14 Oxygen Delivery Oxygen Delivery Room Air Psych - MDM Narrative Medical decision making narrative: Laboratory analysis and EKG is negative for acute pathology Patient is medically cleared for psychiatric evaluation. Currently pending psychiatric recommendations. Patient care signed over to resident physician Dr. Leroy Howe at the end of my shift Please see Dr. Howe's documentation for further evaluation, treatments, and final disposition. - Lab Data Lab results reviewed: Yes I reviewed the patient's lab results. Result diagrams: 07/10/18 14:00 07/10/18 14:00 Lab Results 07/10/18 07/10/18 07/10/18 Range/Units 14:00 14:00 14:00 WBC 13.8 H (4.3-11.1) K/mcL RBC 4.77 (3.82-4.97) M/mcL Hgb 15.2 (11.5-15.4) g/dL Hct 44.7 (35.3-44.9) % MCV 93.7 (83.0-100.0) fL MCH 31.9 (28.0-33.3) pg MCHC 34.0 (31.6-35.5) g/dL RDW 13.4 (11.5-14.5) % Plt Count 366 (140-400) K/mcL MPV 8.8 L (9.4-12.4) fL Immature Gran % 0.2 (0-4) % Seg Neutrophils % 70.1 % Lymphocytes % 20.0 % Monocytes % 8.2 % Eosinophils % 1.1 % Basophils % 0.4 % Neutrophils # 9.7 H (1.6-8.9) K/mcL Lymphocytes # 2.8 (0.6-4.6) K/mcL Monocytes # 1.1 (0.0-1.3) K/mcL Eosinophils # 0.2 (0.0-0.6) K/mcL Basophils # 0.1 (0.0-0.2) K/mcL Sodium 141 (136-145) mEq/L Potassium 3.4 L (3.5-5.1) mEq/L Chloride 108 H (98-107) mEq/L Carbon Dioxide 20 L (23-29) mEq/L BUN 10 (6-20) mg/dL Creatinine 0.75 (0.60-1.20) mg/dL Est GFR ( Amer) > 60 (> 60) Est GFR (Non-Af Amer) > 60 (> 60) BUN/Creatinine Ratio 13 (6-26) Glucose 107 H (70-105) mg/dL Calculated Osmolality 292 (280-300) Calcium 10.3 (8.6-10.3) mg/dL Total Bilirubin 0.9 (0.3-1.0) mg/dL Direct Bilirubin 0.2 (0.0-0.2) mg/dL Indirect Bilirubin 0.7 (0.0-1.2) mg/dL AST 19 (13-39) Units/L ALT 48 (7-52) Units/L Alkaline Phosphatase 128 H (34-104) Units/L Serum Total Protein 8.3 (6.4-8.9) g/dL Albumin 4.7 (3.5-5.7) g/dL Globulin 3.6 H (2.4-3.5) g/dL Albumin/Globulin Ratio 1.3 (1.1-2.2) Lipase 22 (11-82) Units/L Urine Color (Yellow) Urine Clarity (Clear) Urine pH (5.0-8.0) pH Units Ur Specific [place] (1.010-1.025) Urine Protein (Neg-Trace) mg/dL Urine Glucose (UA) (Normal) mg/dL Urine Ketones (Negative) mg/dL Urine Blood (Negative) Urine Nitrite (Negative) Urine Bilirubin (Negative) Urine Urobilinogen (Normal) mg/dL Ur Leukocyte Esterase (Negative) Urine Microscopic RBC (0-3) per hpf Urine Microscopic WBC (0-3) per hpf Ur Squamous Epith Cells (None-Few) per lpf Urine Bacteria (None-Few) per hpf Hyaline Casts (None-Few) per lpf Urine Mucus (Few) Ur Culture Indicated? (NO) Urine Test (Negative) Salicylates < 2.5 L (15.0-30.0) mg/dL Urine Opiates Screen (Oeyxxr=319) ng/mL Acetaminophen < 10 L (10-20) mcg/mL Ur Barbiturates Screen (Rsmknk=963) ng/mL Ur Phencyclidine Scrn (Cutoff=25) ng/mL Ur Amphetamines Screen (Anpxyw=0858) ng/mL U Benzodiazepines Scrn (Ybbdgk=728) ng/mL [place] 0.4 L (0.6-1.2) mEq/L Urine Cocaine Screen (Cutoff= 300) ng/mL U Marijuana (THC) Screen (Cutoff = 50) ng/mL Ur Drug Screen Interp Ethyl Alcohol < 10 (Less than 10) mg/dL 07/10/18 07/10/18 07/10/18 Range/Units 14:50 14:50 14:50 WBC (4.3-11.1) K/mcL RBC (3.82-4.97) M/mcL Hgb (11.5-15.4) g/dL Hct (35.3-44.9) % MCV (83.0-100.0) fL MCH (28.0-33.3) pg MCHC (31.6-35.5) g/dL RDW (11.5-14.5) % Plt Count (140-400) K/mcL MPV (9.4-12.4) fL Immature Gran % (0-4) % Seg Neutrophils % % Lymphocytes % % Monocytes % % Eosinophils % % Basophils % % Neutrophils # (1.6-8.9) K/mcL Lymphocytes # (0.6-4.6) K/mcL Monocytes # (0.0-1.3) K/mcL Eosinophils # (0.0-0.6) K/mcL Basophils # (0.0-0.2) K/mcL Sodium (136-145) mEq/L Potassium (3.5-5.1) mEq/L Chloride (98-107) mEq/L Carbon Dioxide (23-29) mEq/L BUN (6-20) mg/dL Creatinine (0.60-1.20) mg/dL Est GFR ( Amer) (> 60) Est GFR (Non-Af Amer) (> 60) BUN/Creatinine Ratio (6-26) Glucose (70-105) mg/dL Calculated Osmolality (280-300) Calcium (8.6-10.3) mg/dL Total Bilirubin (0.3-1.0) mg/dL Direct Bilirubin (0.0-0.2) mg/dL Indirect Bilirubin (0.0-1.2) mg/dL AST (13-39) Units/L ALT (7-52) Units/L Alkaline Phosphatase (34-104) Units/L Serum Total Protein (6.4-8.9) g/dL Albumin (3.5-5.7) g/dL Globulin (2.4-3.5) g/dL Albumin/Globulin Ratio (1.1-2.2) Lipase (11-82) Units/L Urine Color Dark Yellow (Yellow) Urine Clarity Turbid A (Clear) Urine pH 7.0 (5.0-8.0) pH Units Ur Specific [place] 1.024 (1.010-1.025) Urine Protein 100 H (Neg-Trace) mg/dL Urine Glucose (UA) Normal (Normal) mg/dL Urine Ketones 40 H (Negative) mg/dL Urine Blood Negative (Negative) Urine Nitrite Negative (Negative) Urine Bilirubin Small H (Negative) Urine Urobilinogen Normal (Normal) mg/dL Ur Leukocyte Esterase Trace H (Negative) Urine Microscopic RBC 0-3 (0-3) per hpf Urine Microscopic WBC 5-15 H (0-3) per hpf Ur Squamous Epith Cells Many H (None-Few) per lpf Urine Bacteria Many H (None-Few) per hpf Hyaline Casts None Seen (None-Few) per lpf Urine Mucus Moderate H (Few) Ur Culture Indicated? YES A (NO) Urine Test Negative (Negative) Salicylates (15.0-30.0) mg/dL Urine Opiates Screen Positive H (Heotmx=116) ng/mL Acetaminophen (10-20) mcg/mL Ur Barbiturates Screen Negative (Klyjku=690) ng/mL Ur Phencyclidine Scrn Negative (Cutoff=25) ng/mL Ur Amphetamines Screen Negative (Ydokto=6362) ng/mL U Benzodiazepines Scrn Negative (Bijnwy=699) ng/mL [place] (0.6-1.2) mEq/L Urine Cocaine Screen Negative (Cutoff= 300) ng/mL U Marijuana (THC) Screen Negative (Cutoff = 50) ng/mL Ur Drug Screen Interp See Below Ethyl Alcohol (Less than 10) mg/dL - EKG Data EKG attestation: Yes I reviewed and interpreted this EKG. EKG results narrative: Patient EKG shows sinus tachycardia with a heart of 104 bpm FL interval of 174 ms, QR religious of 81 ms, QT/QTc interval 344/453 ms respectively. There are no significant ST segment elevations, depressions, pathologic Q's, abnormal T- wave inversions, nor other signs of acute ischemic change. This EKG is generally consistent with prior EKG performed on 06/25/2017. Psychiatric Medical Clearance - Medical Clearance Checklist Medical History: No Social History Section defined Current Vitals: Last Vital Signs Temp 98.6 F 07/10/18 13:14 Pulse 111 07/10/18 13:14 Resp 18 07/10/18 13:14 BP 153/103 07/10/18 13:14 Pulse Ox 96 07/10/18 13:14 Psychiatric Lab Panel: Drug Levels and Toxicity 07/10/18 07/10/18 07/10/18 14:00 14:00 14:50 Urine Opiates Screen Positive H Acetaminophen < 10 L Ur Barbiturates Screen Negative Ur Phencyclidine Scrn Negative Ur Amphetamines Screen Negative U Benzodiazepines Scrn Negative [place] 0.4 L Urine Cocaine Screen Negative U Marijuana (THC) Screen Negative Ethyl Alcohol < 10 Abnormal Labs: Abnormal lab results WBC 13.8 K/mcL (4.3-11.1) H 07/10/18 14:00 MPV 8.8 fL (9.4-12.4) L 07/10/18 14:00 9.7 K/mcL (1.6-8.9) H 07/10/18 14:00 Potassium 3.4 mEq/L (3.5-5.1) L 07/10/18 14:00 Chloride 108 mEq/L (98-107) H 07/10/18 14:00 Carbon Dioxide 20 mEq/L (23-29) L 07/10/18 14:00 Glucose 107 mg/dL (70-105) H 07/10/18 14:00 128 Units/L (34-104) H 07/10/18 14:00 3.6 g/dL (2.4-3.5) H 07/10/18 14:00 Turbid (Clear) A 07/10/18 14:50 100 mg/dL (Neg-Trace) H 07/10/18 14:50 40 mg/dL (Negative) H 07/10/18 14:50 Small (Negative) H 07/10/18 14:50 Ur Leukocyte Esterase Trace (Negative) H 07/10/18 14:50 5-15 per hpf (0-3) H 07/10/18 14:50 Ur Squamous Epith Cells Many per lpf (None-Few) H 07/10/18 14:50 Many per hpf (None-Few) H 07/10/18 14:50 Moderate (Few) H 07/10/18 14:50 Ur Culture Indicated? YES (NO) A 07/10/18 14:50 Salicylates < 2.5 mg/dL (15.0-30.0) L 07/10/18 14:00 Positive ng/mL (Qjsapk=360) H 07/10/18 14:50 Acetaminophen < 10 mcg/mL (10-20) L 07/10/18 14:00 [place] 0.4 mEq/L (0.6-1.2) L 07/10/18 14:00 Statement of Medical Clearance: I have evaluated the patient, reviewed diagnostic information, and certify that the patient's medical condition is sufficiently stable that transfer to the psychiatric unit does not pose a significant risk of deterioration.
[2018-07-10] MEDS ORDERED: ALPRAZolam 0.5 MG TABLET PO ONE (14:13)
[2018-07-10 14:19] LABS: Basophils # 0.1 K/mcL (0.0-0.2); Basophils % 0.4 %; Eosinophils # 0.2 K/mcL (0.0-0.6); Eosinophils % 1.1 %; Hematocrit 44.7 % (35.3-44.9); Hemoglobin 15.2 g/dL (11.5-15.4); Immature Granulocytes % 0.2 % (0-4); Lymphocytes # 2.8 K/mcL (0.6-4.6); Mean Corpuscular Hemoglobin 31.9 pg (28.0-33.3); Mean Corpuscular Volume 93.7 fL (83.0-100.0); Mean Platelet Volume 8.8 fL (9.4-12.4); Monocytes # 1.1 K/mcL (0.0-1.3); Monocytes % 8.2 %; Neutrophils # 9.7 K/mcL (1.6-8.9); Platelet Count 366 K/mcL (140-400); Red Blood Count 4.77 M/mcL (3.82-4.97); Red Cell Distribution Width 13.4 % (11.5-14.5); Segmented Neutrophils % 70.1 %
[2018-07-10 14:39] LABS: Acetaminophen < 10 mcg/mL (10-20); Alanine Aminotransferase 48 Units/L (7-52); Albumin 4.7 g/dL (3.5-5.7); Albumin/Globulin Ratio 1.3 (1.1-2.2); Alkaline Phosphatase 128 Units/L (34-104); Aspartate Amino Transferase 19 Units/L (13-39); BUN/Creatinine Ratio 13 (6-26); Bilirubin,Direct 0.2 mg/dL (0.0-0.2); Bilirubin,Indirect 0.7 mg/dL (0.0-1.2); Bilirubin,Total 0.9 mg/dL (0.3-1.0); Blood Urea Nitrogen 10 mg/dL (6-20); Calcium 10.3 mg/dL (8.6-10.3); Carbon Dioxide 20 mEq/L (23-29); Chloride 108 mEq/L (98-107); Ethanol < 10 mg/dL (Less than 10); Globulin 3.6 g/dL (2.4-3.5); Glucose 107 mg/dL (70-105); Lipase 22 Units/L (11-82); Osmolality,Calculated 292 (280-300); Potassium 3.4 mEq/L (3.5-5.1); Salicylate < 2.5 mg/dL (15.0-30.0); Sodium 141 mEq/L (136-145); Total Protein 8.3 g/dL (6.4-8.9); eGFR For Non-African Americans > 60 (> 60)
[2018-07-10 15:14] LABS: Bilirubin,Urine Small (Negative); Blood,Urine Negative (Negative); Clarity,Urine Turbid (Clear); Color,Urine Dark Yellow (Yellow); Glucose,Urine (UA) Normal (Normal); Ketones,Urine 40 mg/dL (Negative); Leukocyte Esterase,Urine Trace (Negative); Nitrite,Urine Negative (Negative); Protein,Urine 100 mg/dL (Neg-Trace); Specific Gravity,Urine 1.024 (1.010-1.025); Urobilinogen,Urine Normal (Normal)
[2018-07-10 15:19] LABS: Bacteria,Urine Many per hpf (None-Few); Squamous Epithelial Cell,Urine Many per lpf (None-Few)
[2018-07-10 15:29] LABS: Amphetamine Screen,Urine Negative ng/mL (Cutoff=1000); Barbiturate Screen,Urine Negative ng/mL (Cutoff=200); Benzodiazepines Screen,Urine Negative ng/mL (Cutoff=200); Cannabinoid Screen,Urine Negative ng/mL (Cutoff = 50); Cocaine Screen,Urine Negative ng/mL (Cutoff= 300); Opiate Screen,Urine Positive ng/mL (Cutoff=300); Phencyclidine Screen,Urine Negative ng/mL (Cutoff=25)
[2018-07-10 15:47] LABS: Hyaline Casts,Urine None Seen per lpf (None-Few); Mucus,Urine Moderate (Few); RBC,Urine 0-3 per hpf (0-3)
--- NOTE | 2018-07-10 17:31 | Emergency Department Note ---
Disposition Clinical Impression: Acute anxiety Depression Qualifiers: Depression Type: unspecified Qualified Code(s): F32.9 - Major depressive disorder, single episode, unspecified Disposition: Admitted As Inpatient Condition: Undetermined General Adult HPI - General Chief complaint: ED Psychiatric Symptoms Stated complaint: psych eval, depression Time Seen by Provider: 07/10/18 13:46 Source: patient Limitations: altered mental status - History of Present Illness Pain Scale: 0 - Related Data Home Medications Medication Instructions Recorded Confirmed Aripiprazole [Abilify] 15 mg PO DAILY 09/01/17 09/01/17 Calcium Carbonate/Vitamin D3 1 tab PO DAILY 09/01/17 09/01/17 [Oyster Shell Calcium-Vit D Tab] Cetirizine HCl 10 mg PO DAILY 09/01/17 09/01/17 Cyclobenzaprine [Flexeril] 10 mg PO TID PRN 09/01/17 09/01/17 DiphenhydraMINE [Benadryl] 25 mg PO Q6HR 09/01/17 09/01/17 Doxycycline Hyclate [Vibramycin] 100 mg PO BID 09/01/17 09/01/17 Fluticasone Propionate Nasal 1 spr NS DAILY 09/01/17 09/01/17 [Flonase] Gabapentin [Neurontin] 800 mg PO TID 09/01/17 09/01/17 Ibuprofen 800 mg PO TID 09/01/17 09/01/17 [place] Carbonate ER [Eskalith] 900 mg PO HS 09/01/17 09/01/17 Melatonin 6 mg PO HS 09/01/17 09/01/17 Montelukast [Singulair] 10 mg PO DAILY 09/01/17 09/01/17 Oxybutynin Chloride [Ditropan Xl] 5 mg PO DAILY 09/01/17 09/01/17 Prazosin HCl [Minipress] 6 mg PO HS 09/01/17 09/01/17 Propranolol HCl 80 mg PO DAILY 09/01/17 09/01/17 Ranitidine HCl [Acid Personal Secretary] 150 mg PO BID 09/01/17 09/01/17 clonazePAM [Klonopin] 1 mg PO TID 09/01/17 09/01/17 hydroCHLOROthiazide 12.5 mg PO DAILY 09/01/17 09/01/17 [Hydrochlorothiazide] Previous Rx's Medication Instructions Recorded Nitrofurantoin (BID) [Macrobid] 100 mg PO BID #20 capsule 01/12/18 Phenazopyridine [Pyridium] 100 mg PO TID #6 tablet 01/12/18 Benzonatate [Tessalon] 100 mg PO TID #9 capsule 05/11/18 Allergies Allergy/AdvReac Type Severity Reaction Status Date / Time cephalexin Allergy Severe Hives Verified 05/11/18 10:35 fluticasone [From Flonase] Allergy Hives Verified 05/11/18 10:35 Past Medical History - Past Medical History Medical history: Reports: no medical history Surgical history: Reports: cholecystectomy, other (tubal ligation) Psychiatric history: Reports: previous psychiatric hospitalization NURSE EXTERN history: Reports: bilateral tubal ligation - Social History Smoking Status: Never smoker Smokeless Tobacco Status: No Alcohol use: Reports: none Drug use: Reports: none Physical Exam - General Limitations: altered mental status General appearance: alert, in no apparent distress Course - Reevaluation(s) Reevaluation #1: accepted sign out from Dr. Pizano for pysch clearance. Varghese is medically cleared and pending 1A reccs. Varghese is resting comforatbly at bedside and is otherwise stable. Time: 17:30 - Consultations Consultation #1: 1a has accepted varghese for admission Time: 19:14 Vital Signs Temperature 98.6 F 07/10/18 13:14 Pulse Rate 111 07/10/18 13:14 Respiratory Rate 18 07/10/18 13:14 Blood Pressure 153/103 07/10/18 13:14 O2 Sat by Pulse Oximetry 96 07/10/18 13:14 Temperature 98.6 F 07/10/18 13:14 Pulse Rate 111 07/10/18 13:14 Respiratory Rate 18 07/10/18 13:14 Blood Pressure 153/103 07/10/18 13:14 O2 Sat by Pulse Oximetry 96 07/10/18 13:14 Oxygen Delivery Oxygen Delivery Room Air Medical Decision Making - Lab Data Result diagrams: 07/10/18 14:00 07/10/18 14:00 Lab Results 07/10/18 07/10/18 07/10/18 Range/Units 14:00 14:00 14:00 WBC 13.8 H (4.3-11.1) K/mcL RBC 4.77 (3.82-4.97) M/mcL Hgb 15.2 (11.5-15.4) g/dL Hct 44.7 (35.3-44.9) % MCV 93.7 (83.0-100.0) fL MCH 31.9 (28.0-33.3) pg MCHC 34.0 (31.6-35.5) g/dL RDW 13.4 (11.5-14.5) % Plt Count 366 (140-400) K/mcL MPV 8.8 L (9.4-12.4) fL Immature Gran % 0.2 (0-4) % Seg Neutrophils % 70.1 % Lymphocytes % 20.0 % Monocytes % 8.2 % Eosinophils % 1.1 % Basophils % 0.4 % Neutrophils # 9.7 H (1.6-8.9) K/mcL Lymphocytes # 2.8 (0.6-4.6) K/mcL Monocytes # 1.1 (0.0-1.3) K/mcL Eosinophils # 0.2 (0.0-0.6) K/mcL Basophils # 0.1 (0.0-0.2) K/mcL Sodium 141 (136-145) mEq/L Potassium 3.4 L (3.5-5.1) mEq/L Chloride 108 H (98-107) mEq/L Carbon Dioxide 20 L (23-29) mEq/L BUN 10 (6-20) mg/dL Creatinine 0.75 (0.60-1.20) mg/dL Est GFR ( Amer) > 60 (> 60) Est GFR (Non-Af Amer) > 60 (> 60) BUN/Creatinine Ratio 13 (6-26) Glucose 107 H (70-105) mg/dL Calculated Osmolality 292 (280-300) Calcium 10.3 (8.6-10.3) mg/dL Total Bilirubin 0.9 (0.3-1.0) mg/dL Direct Bilirubin 0.2 (0.0-0.2) mg/dL Indirect Bilirubin 0.7 (0.0-1.2) mg/dL AST 19 (13-39) Units/L ALT 48 (7-52) Units/L Alkaline Phosphatase 128 H (34-104) Units/L Serum Total Protein 8.3 (6.4-8.9) g/dL Albumin 4.7 (3.5-5.7) g/dL Globulin 3.6 H (2.4-3.5) g/dL Albumin/Globulin Ratio 1.3 (1.1-2.2) Lipase 22 (11-82) Units/L Urine Color (Yellow) Urine Clarity (Clear) Urine pH (5.0-8.0) pH Units Ur Specific [place] (1.010-1.025) Urine Protein (Neg-Trace) mg/dL Urine Glucose (UA) (Normal) mg/dL Urine Ketones (Negative) mg/dL Urine Blood (Negative) Urine Nitrite (Negative) Urine Bilirubin (Negative) Urine Urobilinogen (Normal) mg/dL Ur Leukocyte Esterase (Negative) Urine Microscopic RBC (0-3) per hpf Urine Microscopic WBC (0-3) per hpf Ur Squamous Epith Cells (None-Few) per lpf Urine Bacteria (None-Few) per hpf Hyaline Casts (None-Few) per lpf Urine Mucus (Few) Ur Culture Indicated? (NO) Urine Test (Negative) Salicylates < 2.5 L (15.0-30.0) mg/dL Urine Opiates Screen (Ewpqtj=427) ng/mL Acetaminophen < 10 L (10-20) mcg/mL Ur Barbiturates Screen (Ryvehc=835) ng/mL Ur Phencyclidine Scrn (Cutoff=25) ng/mL Ur Amphetamines Screen (Zkdqmi=6555) ng/mL U Benzodiazepines Scrn (Abqsjt=152) ng/mL [place] 0.4 L (0.6-1.2) mEq/L Urine Cocaine Screen (Cutoff= 300) ng/mL U Marijuana (THC) Screen (Cutoff = 50) ng/mL Ur Drug Screen Interp Ethyl Alcohol < 10 (Less than 10) mg/dL 07/10/18 07/10/18 07/10/18 Range/Units 14:50 14:50 14:50 WBC (4.3-11.1) K/mcL RBC (3.82-4.97) M/mcL Hgb (11.5-15.4) g/dL Hct (35.3-44.9) % MCV (83.0-100.0) fL MCH (28.0-33.3) pg MCHC (31.6-35.5) g/dL RDW (11.5-14.5) % Plt Count (140-400) K/mcL MPV (9.4-12.4) fL Immature Gran % (0-4) % Seg Neutrophils % % Lymphocytes % % Monocytes % % Eosinophils % % Basophils % % Neutrophils # (1.6-8.9) K/mcL Lymphocytes # (0.6-4.6) K/mcL Monocytes # (0.0-1.3) K/mcL Eosinophils # (0.0-0.6) K/mcL Basophils # (0.0-0.2) K/mcL Sodium (136-145) mEq/L Potassium (3.5-5.1) mEq/L Chloride (98-107) mEq/L Carbon Dioxide (23-29) mEq/L BUN (6-20) mg/dL Creatinine (0.60-1.20) mg/dL Est GFR ( Amer) (> 60) Est GFR (Non-Af Amer) (> 60) BUN/Creatinine Ratio (6-26) Glucose (70-105) mg/dL Calculated Osmolality (280-300) Calcium (8.6-10.3) mg/dL Total Bilirubin (0.3-1.0) mg/dL Direct Bilirubin (0.0-0.2) mg/dL Indirect Bilirubin (0.0-1.2) mg/dL AST (13-39) Units/L ALT (7-52) Units/L Alkaline Phosphatase (34-104) Units/L Serum Total Protein (6.4-8.9) g/dL Albumin (3.5-5.7) g/dL Globulin (2.4-3.5) g/dL Albumin/Globulin Ratio (1.1-2.2) Lipase (11-82) Units/L Urine Color Dark Yellow (Yellow) Urine Clarity Turbid A (Clear) Urine pH 7.0 (5.0-8.0) pH Units Ur Specific [place] 1.024 (1.010-1.025) Urine Protein 100 H (Neg-Trace) mg/dL Urine Glucose (UA) Normal (Normal) mg/dL Urine Ketones 40 H (Negative) mg/dL Urine Blood Negative (Negative) Urine Nitrite Negative (Negative) Urine Bilirubin Small H (Negative) Urine Urobilinogen Normal (Normal) mg/dL Ur Leukocyte Esterase Trace H (Negative) Urine Microscopic RBC 0-3 (0-3) per hpf Urine Microscopic WBC 5-15 H (0-3) per hpf Ur Squamous Epith Cells Many H (None-Few) per lpf Urine Bacteria Many H (None-Few) per hpf Hyaline Casts None Seen (None-Few) per lpf Urine Mucus Moderate H (Few) Ur Culture Indicated? YES A (NO) Urine Test Negative (Negative) Salicylates (15.0-30.0) mg/dL Urine Opiates Screen Positive H (Yuxxbg=937) ng/mL Acetaminophen (10-20) mcg/mL Ur Barbiturates Screen Negative (Ivlrfp=930) ng/mL Ur Phencyclidine Scrn Negative (Cutoff=25) ng/mL Ur Amphetamines Screen Negative (Qsbdqx=1777) ng/mL U Benzodiazepines Scrn Negative (Gruyih=081) ng/mL [place] (0.6-1.2) mEq/L Urine Cocaine Screen Negative (Cutoff= 300) ng/mL U Marijuana (THC) Screen Negative (Cutoff = 50) ng/mL Ur Drug Screen Interp See Below Ethyl Alcohol (Less than 10) mg/dL
[2018-07-10] MEDS ORDERED: MOM Conc 10 ML UD.LIQ PO PRN (19:35)
[2018-07-10] MEDS ORDERED: Haloperidol Lactate 5 MG/ML VIAL IM PRN (19:35)
[2018-07-10] MEDS ORDERED: hydrOXYzine pamoate 25 MG CAPSULE PO PRN (19:35)
[2018-07-10] MEDS ORDERED: *HR* LORazepam 1 MG TABLET PO PRN (19:35)
[2018-07-10] MEDS ORDERED: *HR* LORazepam 2 MG/ML VIAL IM PRN (19:35)
[2018-07-10] MEDS ORDERED: Mag Hydrox/Al Hydrox/Simeth 30 ML UDC PO PRN (19:35)
[2018-07-10] MEDS: traZODone 50 MG TABLET PO PRN (22:02)
[2018-07-10] MEDS ORDERED: cloNIDine HCl 0.1 MG TABLET PO PRN (22:25)
[2018-07-10] MEDS: Lithium Carbonate 300 MG CAPSULE PO SCH (23:31)
[2018-07-11] MEDS: clonazePAM 1 MG TABLET PO PRN ×2 (09:01→21:10)
[2018-07-11] MEDS: Loratadine 10 MG TABLET PO SCH (09:01)
[2018-07-11] MEDS: Famotidine 20 MG TABLET PO SCH ×2 (09:01→20:39)
--- NOTE | 2018-07-11 12:04 | Psychiatry History & Physical ---
Date of Encounter: 07/11/18 Time of Encounter: 11:56 History of Present Illness Patient Stated Chief Complaint: depression Medicare Admission Attestation: For traditional Medicare patients the provided hospital inpatient services are reasonable and necessary and in the case of services not specified as inpatient-only under 42 CFR 419.22 (n), that they are appropriately provided as inpatient services in accordance 42 CFR 412.3. For Critical Access Hospital the patient may reasonably be expected to be discharged or transferred to a hospital within 96 hours after admission to the Critical Access Hospital. Admitted From: Home Plans for Post Hospital Care: Home History of Present Illness: Ms. Pastor is a 33 year old female who presented to [facility] yesterday in an agitated state. According to the person that gave report, the client was crying hysterically and they could not get any useful information out of her. Client has a documented history of Autism and Schizoaffective Disorder. She has been hospitalized on 1A once before for HI toward her . Client denies SI/HI/AH/VH to this show card writer today. However, she is rocking back and forth and she is very tearful. Unable to give much useful information. States she was living with her in-laws but that she has been evicted. Staying with friends now but her friends reported their belief that client's in-laws were not giving cl ient her meds appropriately and took many of her prescriptions from her. Specifically, her benzos were missing and client's [place] level was low at the time of admission. Client is aware of some of her medications but may not have been aware if some meds were being kept from her. Client appears to be physically healthy. No known AOD issues but tox screen was positive for opiates. Will attempt to restabilize her on her home regimen. Once she is calmer she may be able to provide additional history. Past Med Surg Social Fam HX - Past Medical History Medical history: no medical history - Past Psychiatric History Psychiatric history: Reports: bipolar, schizophrenia, previous psychiatric hospitalization Family psychiatric history: Unknown Family History of Suicide: Unknown - Past Surgical History Surgical History: cholecystectomy, other (tubal ligation) - Social History Smoking Status: Never smoker Smokeless Tobacco Status: No Alcohol use: none Drug use: none Medications & Allergies Calcium Carbonate/Vitamin D3 [Oyster Shell Calcium-Vit D Tab] 1 tab PO DAILY 09/01/17 [History] Cetirizine HCl 10 mg PO DAILY 09/01/17 [History] Cyclobenzaprine [Flexeril] 10 mg PO HS 09/01/17 [History] DiphenhydraMINE [Benadryl] 25 mg PO BID PRN 09/01/17 [History] Ibuprofen 800 mg PO TID PRN 09/01/17 [History] Melatonin 6 mg PO HS 09/01/17 [History] Prazosin HCl [Minipress] 2 mg PO HS 09/01/17 [History] Propranolol HCl 80 mg PO DAILY 09/01/17 [History] Ranitidine HCl [Acid Radiological Equipment Specialist] 150 mg PO BID 09/01/17 [History] clonazePAM [Klonopin] 1 mg PO BID PRN 09/01/17 [History] Acetaminophen with Codeine [Acetaminophen-Cod #3 Tablet] 1 tab PO Q4-6H PRN 07/10/18 [History] Albuterol Sulfate [Albuterol Inhaler] 1 puff IH Q6H PRN 07/10/18 [History] Amoxicillin [Amoxil] 500 mg PO TID 07/10/18 [History] Desvenlafaxine Succinate [Desvenlafaxine Succinate ER] 50 mg PO DAILY 07/10/18 [History] [place] Carbonate 900 mg PO HS 07/10/18 [History] cloNIDine HCl [CloNIDine HCl] 0.1 mg PO DAILY PRN 07/10/18 [History] hydrOXYzine pamoate [HydrOXYzine Pamoate] 50 mg PO BID PRN 07/10/18 [History] Allergy/AdvReac Type Severity Reaction Status Date / Time cephalexin Allergy Severe Hives Verified 05/11/18 10:35 fluticasone [From Flonase] Allergy Hives Verified 05/11/18 10:35 Review of Systems Constitutional: Denies: fever, chills, weakness, weight change Eyes: Denies: eye pain, vision change Ears, Nose, Throat: Denies: ear pain, throat pain, dental pain, hearing loss, congestion Cardiovascular: Denies: chest pain, palpitations, dyspnea on exertion Respiratory: Denies: cough, dyspnea, wheezes Gastrointestinal: Denies: abdominal pain, nausea, vomiting, diarrhea, constipation Genitourinary female: Denies: urgency, dysuria, frequency, abnormal menses, dyspareunia Musculoskeletal: Denies: joint swelling, joint pain Integumentary: Denies: rash, lesions, pruritus Neurological: Denies: headache, weakness, numbness, memory loss Endocrine: Denies: fatigue, heat or cold intolerance Hematologic/Lymphatic: Denies: easy bruising, lymphadenopathy Allergic/Immunologic: Denies: urticaria, itchy eyes Exam - HEENT Head exam IM: Present: atraumatic Eye exam IM: Present: EOMI, normal appearance, PERRL ENT exam IM: Present: normal exam - Neurological Neurological exam: Present: CN II-XII intact - Respiratory Respiratory exam IM: Present: CTAB - GI/Abdominal GI/Abdominal exam IM: Present: normal bowel sounds, soft. Absent: tenderness - Extremities Extremities exam IM: Present: full ROM - Skin Skin exam IM: Present: dry, warm - Constitutional Vitals: Temp Pulse Resp BP Pulse Ox 97.9 F 128 16 102/71 100 07/11/18 09:00 07/11/18 09:00 07/11/18 09:00 07/11/18 09:00 07/11/18 09:00 General appearance: disheveled - Musculoskeletal Gait: normal Station: relaxed Strength & Tone: normal for patient - Psychiatric Patient Orientation: Yes Person, Yes Time, Yes Place Level of alertness: Alert Behavior: anxious, tearful Psychomotor activity: Increased Eye Contact: Maintains Eye Contact Mood Description: Depressed, Anxious Affect description: congruent with mood Speech Volume: Normal Speech pattern: limited Language & Vocabulary: consistent with education Thought Process: [place] Thought Content: No Suicidal ideation, No Homicidal ideation, No Overt delusions Perceptual Disturbances: No Auditory hallucinations, No Visual hallucinations Attention Span Ability: Capable of Focused Attention Memory Description: Grossly Intact Patient Reliability: Questionable Historian Fund of knowledge: Yes below average Intelligence Estimate: Below Average Judgment: Fair Insight: Partial Results - Drug Levels and Toxicology Drug Levels and Toxicology: Drug Levels and Toxicity 07/10/18 07/10/18 07/10/18 14:00 14:00 14:50 Urine Opiates Screen Positive H Acetaminophen < 10 L Ur Barbiturates Screen Negative Ur Phencyclidine Scrn Negative Ur Amphetamines Screen Negative U Benzodiazepines Scrn Negative [place] 0.4 L Urine Cocaine Screen Negative U Marijuana (THC) Screen Negative Ethyl Alcohol < 10 - Labs Labs: Laboratory Last Values WBC 13.8 K/mcL (4.3-11.1) H 07/10/18 14:00 RBC 4.77 M/mcL (3.82-4.97) 07/10/18 14:00 Hgb 15.2 g/dL (11.5-15.4) 07/10/18 14:00 Hct 44.7 % (35.3-44.9) 07/10/18 14:00 MCV 93.7 fL (83.0-100.0) 07/10/18 14:00 MCH 31.9 pg (28.0-33.3) 07/10/18 14:00 MCHC 34.0 g/dL (31.6-35.5) 07/10/18 14:00 RDW 13.4 % (11.5-14.5) 07/10/18 14:00 Plt Count 366 K/mcL (140-400) 07/10/18 14:00 MPV 8.8 fL (9.4-12.4) L 07/10/18 14:00 Immature Gran % 0.2 % (0-4) 07/10/18 14:00 Seg Neutrophils % 70.1 % 07/10/18 14:00 20.0 % 07/10/18 14:00 8.2 % 07/10/18 14:00 1.1 % 07/10/18 14:00 0.4 % 07/10/18 14:00 9.7 K/mcL (1.6-8.9) H 07/10/18 14:00 2.8 K/mcL (0.6-4.6) 07/10/18 14:00 1.1 K/mcL (0.0-1.3) 07/10/18 14:00 0.2 K/mcL (0.0-0.6) 07/10/18 14:00 0.1 K/mcL (0.0-0.2) 07/10/18 14:00 Sodium 141 mEq/L (136-145) 07/10/18 14:00 Potassium 3.4 mEq/L (3.5-5.1) L 07/10/18 14:00 Chloride 108 mEq/L (98-107) H 07/10/18 14:00 Carbon Dioxide 20 mEq/L (23-29) L 07/10/18 14:00 BUN 10 mg/dL (6-20) 07/10/18 14:00 0.75 mg/dL (0.60-1.20) 07/10/18 14:00 Est GFR ( Amer) > 60 (> 60) 07/10/18 14:00 Est GFR (Non-Af Amer) > 60 (> 60) 07/10/18 14:00 13 (6-26) 07/10/18 14:00 Glucose 107 mg/dL (70-105) H 07/10/18 14:00 292 (280-300) 07/10/18 14:00 Calcium 10.3 mg/dL (8.6-10.3) 07/10/18 14:00 0.9 mg/dL (0.3-1.0) 07/10/18 14:00 0.2 mg/dL (0.0-0.2) 07/10/18 14:00 0.7 mg/dL (0.0-1.2) 07/10/18 14:00 AST 19 Units/L (13-39) 07/10/18 14:00 ALT 48 Units/L (7-52) 07/10/18 14:00 128 Units/L (34-104) H 07/10/18 14:00 8.3 g/dL (6.4-8.9) 07/10/18 14:00 4.7 g/dL (3.5-5.7) 07/10/18 14:00 3.6 g/dL (2.4-3.5) H 07/10/18 14:00 1.3 (1.1-2.2) 07/10/18 14:00 22 Units/L (11-82) 07/10/18 14:00 Dark Yellow (Yellow) 07/10/18 14:50 Turbid (Clear) A 07/10/18 14:50 7.0 pH Units (5.0-8.0) 07/10/18 14:50 Ur Specific [place] 1.024 (1.010-1.025) 07/10/18 14:50 100 mg/dL (Neg-Trace) H 07/10/18 14:50 Normal mg/dL (Normal) 07/10/18 14:50 40 mg/dL (Negative) H 07/10/18 14:50 Negative (Negative) 07/10/18 14:50 Negative (Negative) 07/10/18 14:50 Small (Negative) H 07/10/18 14:50 Normal mg/dL (Normal) 07/10/18 14:50 Ur Leukocyte Esterase Trace (Negative) H 07/10/18 14:50 0-3 per hpf (0-3) 07/10/18 14:50 5-15 per hpf (0-3) H 07/10/18 14:50 Ur Squamous Epith Cells Many per lpf (None-Few) H 07/10/18 14:50 Many per hpf (None-Few) H 07/10/18 14:50 Hyaline Casts None Seen per lpf (None-Few) 07/10/18 14:50 Moderate (Few) H 07/10/18 14:50 Ur Culture Indicated? YES (NO) A 07/10/18 14:50 Negative (Negative) 07/10/18 14:50 Salicylates < 2.5 mg/dL (15.0-30.0) L 07/10/18 14:00 Positive ng/mL (Cpozfp=985) H 07/10/18 14:50 Acetaminophen < 10 mcg/mL (10-20) L 07/10/18 14:00 Ur Barbiturates Screen Negative ng/mL (Urlqlw=793) 07/10/18 14:50 Ur Phencyclidine Scrn Negative ng/mL (Cutoff=25) 07/10/18 14:50 Ur Amphetamines Screen Negative ng/mL (Aurcfc=0016) 07/10/18 14:50 U Benzodiazepines Scrn Negative ng/mL (Aorcuc=642) 07/10/18 14:50 [place] 0.4 mEq/L (0.6-1.2) L 07/10/18 14:00 Negative ng/mL (Cutoff= 300) 07/10/18 14:50 U Marijuana (THC) Screen Negative ng/mL (Cutoff = 50) 07/10/18 14:50 Ur Drug Screen Interp See Below 07/10/18 14:50 Ethyl Alcohol < 10 mg/dL (Less than 10) 07/10/18 14:00 Assessment and Plan (1) Schizoaffective disorder, bipolar type Current visit: No Status: Acute Plan: Admit inpatient for safety and stabilization, Close observation, Suicide Precautions per unit protocol, Encourage participation in unit milieu, Group Therapy, Monitor sleep, Monitor appetite Risks, benefits, side effects, alternatives discussed w/pt: Yes Patient agreeable to treatment: Yes Plans for Post Hospital Care: Home Estimated Length of Stay (Days): 4 (2) Autism Current visit: Yes Status: Acute Plan: Admit inpatient for safety and stabilization, Close observation, Suicide Precautions per unit protocol, Encourage participation in unit milieu, Group Therapy, Monitor sleep, Monitor appetite Risks, benefits, side effects, alternatives discussed w/pt: Yes Patient agreeable to treatment: Yes Plans for Post Hospital Care: Home Estimated Length of Stay (Days): 4
[2018-07-11] MEDS: Melatonin 3 MG TABLET PO SCH (20:39)
[2018-07-11] MEDS: Lithium Carbonate 300 MG CAPSULE PO SCH (20:40)
[2018-07-12] MEDS: clonazePAM 1 MG TABLET PO PRN ×2 (09:33→20:23)
[2018-07-12] MEDS: Venlafaxine XR (24 HR) 75 MG CAP.ER.24H PO SCH (09:33)
[2018-07-12] MEDS: Loratadine 10 MG TABLET PO SCH (09:33)
[2018-07-12] MEDS: Famotidine 20 MG TABLET PO SCH ×2 (09:33→20:23)
--- NOTE | 2018-07-12 09:35 | Psychiatry Progress Note ---
Date of Encounter: 07/12/18 Time of Encounter: 09:30 Subjective Interval history: Client very tearful today. Now endorsing SI. Claiming she hates herself. Continues to believe she is going to senior care for fraud. It is very hard to understand why she thinks this. She is convinced she did something wrong with her social security checks. The friends she has been staying with called the unit last night. Client asked nursing staff not to release any information about her. When her friends were told this they apparently became irate and screamed at the nurse on the phone and then called the home housekeeper and screamed at her. This handbook writer is concerned that the various people client has been living with are taking her money. Will need to get this sorted out and find suitable housing for client. Today she is rocking, tearful, and very focused on being incarcerated. Review of Systems Constitutional: Denies: fever, chills, weakness, weight change Eyes: Denies: eye pain, vision change Ears, Nose, Throat: Denies: ear pain, throat pain, dental pain, hearing loss, congestion Cardiovascular: Denies: chest pain, palpitations, dyspnea on exertion Respiratory: Denies: cough, dyspnea, wheezes Gastrointestinal: Denies: abdominal pain, nausea, vomiting, diarrhea, constipation Musculoskeletal: Denies: joint swelling, joint pain Neurological: Denies: headache, weakness, numbness, memory loss Results - Vital Signs Vital Signs: Temp Pulse Resp BP Pulse Ox 97.8 F 116 18 105/72 98 07/12/18 09:00 07/12/18 09:00 07/12/18 09:00 07/12/18 09:00 07/12/18 09:00 Assessment and Plan (1) Schizoaffective disorder, bipolar type Current visit: No Status: Acute Plan: Continue hospitalization, Close observation, Suicide Precautions per unit protocol, Encourage participation in unit milieu, Group Therapy, Monitor sleep, Monitor appetite Risks, benefits, side effects, alternatives discussed w/pt: Yes Patient agreeable to treatment: Yes (2) Autism Current visit: Yes Status: Acute Plan: Continue hospitalization, Close observation, Suicide Precautions per unit protocol, Encourage participation in unit milieu, Group Therapy, Monitor sleep, Monitor appetite Risks, benefits, side effects, alternatives discussed w/pt: Yes Patient agreeable to treatment: Yes Consult Discharge Plan - Plan Referrals: NONE,PCP [Primary Care Provider] - Psychiatry Exam - Constitutional Vitals: Temp Pulse Resp BP Pulse Ox 97.8 F 116 18 105/72 98 07/12/18 09:00 07/12/18 09:00 07/12/18 09:00 07/12/18 09:00 07/12/18 09:00 General appearance: disheveled - Musculoskeletal Gait: normal Station: relaxed Strength & Tone: normal for patient - Psychiatric Patient Orientation: Yes Person, Yes Time, Yes Place Level of alertness: Alert Behavior: anxious, tearful Psychomotor activity: Increased Eye Contact: Maintains Eye Contact Mood Description: Depressed, Anxious Affect description: congruent with mood Speech Volume: Normal Speech pattern: normal rate, normal rhythm, normal tone, fluent, spontaneous Language & Vocabulary: consistent with education Thought Process: [place] Thought Content: Yes Suicidal ideation, No Homicidal ideation, No Overt delusions Perceptual Disturbances: No Auditory hallucinations, No Visual hallucinations Attention Span Ability: Capable of Focused Attention Memory Description: Grossly Intact Patient Reliability: Questionable Historian Fund of knowledge: Yes below average Intelligence Estimate: Below Average Judgment: Limited Insight: Partial
--- NOTE | 2018-07-12 13:50 | Electrocardiograph Report ---
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
[2018-07-12] MEDS: hydrOXYzine pamoate 25 MG CAPSULE PO PRN (20:24)
[2018-07-12] MEDS: traZODone 50 MG TABLET PO PRN (20:24)
[2018-07-12] MEDS: Lithium Carbonate 300 MG CAPSULE PO SCH (20:24)
[2018-07-12] MEDS: Melatonin 3 MG TABLET PO SCH (20:24)
[2018-07-13] MEDS: Loratadine 10 MG TABLET PO SCH (09:03)
[2018-07-13] MEDS: Venlafaxine XR (24 HR) 75 MG CAP.ER.24H PO SCH (09:03)
[2018-07-13] MEDS: Famotidine 20 MG TABLET PO SCH ×2 (09:03→20:50)
--- NOTE | 2018-07-13 10:34 | Psychiatry Progress Note ---
Date of Encounter: 07/13/18 Time of Encounter: 10:32 Subjective Interval history: Client remains very tearful today. She is reporting SI. Has a plan to overdose. Continues to believe she is going [place] [facility] [place]. It is very hard to understand why she thinks this. She is convinced she did something wrong with her social security checks. Her friends dropped off medication records. She did not eat at all yesterday and is maloderous and not caring for her ADLs. Review of Systems Psychiatric: Reports: depression, abnormal sleep pattern, suicidal ideation, auditory hallucinations, visual hallucinations, confusion. Denies: homicidal ideation Results - Vital Signs Vital Signs: Temp Pulse Resp BP Pulse Ox 98.5 F 108 18 127/82 98 07/13/18 09:00 07/13/18 09:00 07/13/18 09:00 07/13/18 09:00 07/13/18 09:00 Assessment and Plan (1) Schizoaffective disorder, bipolar type Current visit: No Status: Acute Plan: Continue hospitalization, Close observation, Suicide Precautions per unit protocol, Encourage participation in unit milieu, Group Therapy, Monitor sleep, Monitor appetite, Secure weapons Additional Plan: Increase effexor, encourage groups, therapists working for discharge planning. Risks, benefits, side effects, alternatives discussed w/pt: Yes Patient agreeable to treatment: Yes Consult Discharge Plan - Plan Referrals: NONE,PCP [Primary Care Provider] - Psychiatry Exam - Constitutional Vitals: Temp Pulse Resp BP Pulse Ox 98.5 F 108 18 127/82 98 07/13/18 09:00 07/13/18 09:00 07/13/18 09:00 07/13/18 09:00 07/13/18 09:00 General appearance: disheveled, malodorous - Musculoskeletal Gait: unsteady Station: stooped Strength & Tone: mild weakness - Psychiatric Patient Orientation: Yes Person, Yes Time Level of alertness: Alert Behavior: guarded, suspicious Psychomotor activity: Slowed Eye Contact: Fleeting Contact Mood Description: Depressed Patient description of mood: "why" Affect description: flat Speech Volume: Soft/Quiet Speech pattern: slowed Language & Vocabulary: consistent with education Thought Process: Thought Blocking Thought Content: Yes Suicidal ideation, No Homicidal ideation, Yes Paranoid delusion Perceptual Disturbances: Yes Auditory hallucinations, Yes Visual hallucinations Attention Span Ability: Unable to Focus, Unable to Sustain Attention Memory Description: Immediate Impaired, Recent Impaired, Remote Impaired Patient Reliability: Not Reliable Historian Fund of knowledge: Yes average, Yes below average Intelligence Estimate: Below Average Judgment: Poor Insight: Minimal
[2018-07-13] MEDS: clonazePAM 1 MG TABLET PO PRN (20:49)
[2018-07-13] MEDS: hydrOXYzine pamoate 25 MG CAPSULE PO PRN (20:49)
[2018-07-13] MEDS: traZODone 50 MG TABLET PO PRN (20:49)
[2018-07-13] MEDS: Lithium Carbonate 300 MG CAPSULE PO SCH (20:50)
[2018-07-13] MEDS: Melatonin 3 MG TABLET PO SCH (20:50)
[2018-07-14] MEDS: Loratadine 10 MG TABLET PO SCH (09:35)
[2018-07-14] MEDS: Venlafaxine XR (24 HR) 150 MG CAP.ER.24H PO SCH (09:35)
[2018-07-14] MEDS: Famotidine 20 MG TABLET PO SCH ×2 (09:35→21:18)
--- NOTE | 2018-07-14 10:12 | Psychiatry Progress Note ---
Date of Encounter: 07/14/18 Time of Encounter: 10:10 Subjective Interval history: Patient is willing to sign in as a voluntary patient. SHe continues to feel that she will be arrested by the federal government. She is rocking back and forth and seems to be responding to internal stimuli. She denies SI/HI. TOlerating meds. Review of Systems Psychiatric: Reports: depression, abnormal sleep pattern, auditory hallucinations, visual hallucinations, confusion. Denies: homicidal ideation Results - Vital Signs Vital Signs: Temp Pulse Resp BP Pulse Ox 97.9 F 105 18 112/81 96 07/14/18 09:00 07/14/18 09:00 07/14/18 09:00 07/14/18 09:00 07/14/18 09:00 Assessment and Plan (1) Schizoaffective disorder, bipolar type Current visit: No Status: Acute Plan: Continue hospitalization, Close observation, Suicide Precautions per unit protocol, Encourage participation in unit milieu, Group Therapy, Monitor sleep, Monitor appetite Additional Plan: Add Risperdal 1hs for psychosis, Li level in 2 days. groups. Risks, benefits, side effects, alternatives discussed w/pt: Yes Patient agreeable to treatment: Yes Consult Discharge Plan - Plan Referrals: NONE,PCP [Primary Care Provider] - Psychiatry Exam - Constitutional Vitals: Temp Pulse Resp BP Pulse Ox 97.9 F 105 18 112/81 96 07/14/18 09:00 07/14/18 09:00 07/14/18 09:00 07/14/18 09:00 07/14/18 09:00 General appearance: age & developmentally appropriate, unkempt - Musculoskeletal Gait: slow Station: stooped Strength & Tone: normal for patient - Psychiatric Patient Orientation: Yes Person, Yes Time, Yes Place Level of alertness: Alert Behavior: anxious Psychomotor activity: Slowed Eye Contact: Minimal Contact Mood Description: Depressed Patient description of mood: down Affect description: flat Speech Volume: Soft/Quiet Speech pattern: slowed Language & Vocabulary: limited Thought Process: Thought Blocking Thought Content: No Suicidal ideation, No Homicidal ideation, Yes Paranoid delusion Perceptual Disturbances: Yes Reacting to internal stimuli, Yes Auditory hallucinations, Yes Visual hallucinations Attention Span Ability: Unable to Focus, Unable to Sustain Attention Memory Description: Immediate Impaired, Recent Impaired, Remote Impaired Patient Reliability: Questionable Historian Fund of knowledge: Yes average Intelligence Estimate: Average Judgment: Poor Insight: None
[2018-07-14] MEDS: Lithium Carbonate 300 MG CAPSULE PO SCH (21:17)
[2018-07-14] MEDS: risperiDONE 1 MG TABLET PO SCH (21:18)
[2018-07-14] MEDS: hydrOXYzine pamoate 25 MG CAPSULE PO PRN (21:18)
[2018-07-14] MEDS: traZODone 50 MG TABLET PO PRN (21:18)
[2018-07-14] MEDS: Melatonin 3 MG TABLET PO SCH (21:18)
[2018-07-15] MEDS: Ibuprofen 400 MG TABLET PO PRN ×2 (08:32→20:08)
[2018-07-15] MEDS: Venlafaxine XR (24 HR) 150 MG CAP.ER.24H PO SCH (08:32)
[2018-07-15] MEDS: Loratadine 10 MG TABLET PO SCH (08:33)
[2018-07-15] MEDS: Famotidine 20 MG TABLET PO SCH ×2 (08:33→21:52)
--- NOTE | 2018-07-15 09:32 | Psychiatry Progress Note ---
Date of Encounter: 07/15/18 Time of Encounter: 09:30 Subjective Interval history: Patient is doing much better today. She is no longer responding to internal stimuli and denies auditory or visual hallucinations. She denies suicidal or homicidal thoughts and is future oriented. She is tolerating the medications. [facility] should be seeing her today regarding possible placement there. Review of Systems Psychiatric: Reports: depression. Denies: homicidal ideation Results - Vital Signs Vital Signs: Temp Pulse Resp BP Pulse Ox 98.1 F 104 18 110/78 100 07/15/18 09:00 07/15/18 09:00 07/15/18 09:00 07/15/18 09:00 07/15/18 09:00 Assessment and Plan (1) Schizoaffective disorder, bipolar type Current visit: No Status: Acute Plan: Continue hospitalization, Close observation, Suicide Precautions per unit protocol, Encourage participation in unit milieu, Group Therapy, Monitor sleep, Monitor appetite Additional Plan: Continue current medications. Encourage groups. [facility] K[facility] to see her today. Risks, benefits, side effects, alternatives discussed w/pt: Yes Patient agreeable to treatment: Yes Consult Discharge Plan - Plan Referrals: NONE,PCP [Primary Care Provider] - Psychiatry Exam - Constitutional Vitals: Temp Pulse Resp BP Pulse Ox 98.1 F 104 18 110/78 100 07/15/18 09:00 07/15/18 09:00 07/15/18 09:00 07/15/18 09:00 07/15/18 09:00 General appearance: age & developmentally appropriate, well-groomed, well- nourished Additional observations: She was just out of the shower with wet hair - Musculoskeletal Gait: normal Station: relaxed Strength & Tone: normal for patient - Psychiatric Patient Orientation: Yes Person, Yes Time, Yes Place Level of alertness: Alert Behavior: calm, cooperative Psychomotor activity: Normal Eye Contact: Maintains Eye Contact Mood Description: Euthymic/stable Patient description of mood: Okay Affect description: congruent with mood, full range Speech Volume: Normal Speech pattern: normal rate, normal rhythm, normal tone, fluent, spontaneous Language & Vocabulary: consistent with education Thought Process: Linear, Goal Oriented Thought Content: No Suicidal ideation, No Homicidal ideation, No Overt delusions Perceptual Disturbances: No Auditory hallucinations, No Visual hallucinations Attention Span Ability: Capable of Focused Attention Memory Description: Grossly Intact Patient Reliability: Reliable Historian Fund of knowledge: Yes abstraction ability, Yes aware of current events Intelligence Estimate: Average Judgment: Good Insight: Full
[2018-07-15] MEDS: risperiDONE 1 MG TABLET PO SCH (21:52)
[2018-07-15] MEDS: traZODone 50 MG TABLET PO PRN (21:52)
[2018-07-15] MEDS: hydrOXYzine pamoate 25 MG CAPSULE PO PRN (21:53)
[2018-07-15] MEDS: Melatonin 3 MG TABLET PO SCH (21:53)
[2018-07-15] MEDS: Lithium Carbonate 300 MG CAPSULE PO SCH (21:53)
--- NOTE | 2018-07-16 07:19 | Discharge Summary ---
Date of Encounter: 07/16/18 Time of Encounter: 07:11 Diagnosis - Discharge Diagnosis (1) Schizoaffective disorder, bipolar type Status: Acute Medications - Discharge Medications Prescriptions: Ranitidine HCl [Acid Drug And Alcohol Treatment Specialist] 150 mg PO BID #60 tablet cloNIDine HCl [CloNIDine HCl] 0.1 mg PO DAILY PRN #30 tablet PRN Reason: Anxiety Venlafaxine XR (24 HR) [Effexor Xr] 150 mg PO DAILY #30 cap.er.24h Cyclobenzaprine [Flexeril] 10 mg PO HS #30 tablet hydrOXYzine pamoate [HydrOXYzine Pamoate] 50 mg PO BID PRN #60 capsule PRN Reason: Anxiety Ibuprofen 800 mg PO TID PRN #90 tablet PRN Reason: Pain clonazePAM [Klonopin] 1 mg PO BID PRN 30 Days #60 tablet PRN Reason: Anxiety Humble Carbonate 900 mg PO HS #90 capsule Prazosin HCl [Minipress] 2 mg PO HS #30 capsule Propranolol HCl 80 mg PO DAILY #30 tablet risperiDONE [RisperDAL] 1 mg PO HS #30 tablet traZODone [TraZODone] 50 mg PO HS PRN #30 tablet PRN Reason: Insomnia Calcium Carbonate/Vitamin D3 [Oyster Shell Calcium-Vit D Tab] 1 tab PO DAILY 09/01/17 [History] Cetirizine HCl 10 mg PO DAILY 09/01/17 [History] DiphenhydraMINE [Benadryl] 25 mg PO BID PRN 09/01/17 [History] Melatonin 6 mg PO HS 09/01/17 [History] Albuterol Sulfate [Albuterol Inhaler] 1 puff IH Q6H PRN 07/10/18 [History] Cyclobenzaprine [Flexeril] 10 mg PO HS #30 tablet 07/16/18 [Rx] Ibuprofen 800 mg PO TID PRN #90 tablet 07/16/18 [Rx] Humble Carbonate 900 mg PO HS #90 capsule 07/16/18 [Rx] Prazosin HCl [Minipress] 2 mg PO HS #30 capsule 07/16/18 [Rx] Propranolol HCl 80 mg PO DAILY #30 tablet 07/16/18 [Rx] Ranitidine HCl [Acid Drug And Alcohol Treatment Specialist] 150 mg PO BID #60 tablet 07/16/18 [Rx] Venlafaxine XR (24 HR) [Effexor Xr] 150 mg PO DAILY #30 cap.er.24h 07/16/18 [Rx] cloNIDine HCl [CloNIDine HCl] 0.1 mg PO DAILY PRN #30 tablet 07/16/18 [Rx] clonazePAM [Klonopin] 1 mg PO BID 30 Days #60 tablet 07/16/18 [Rx] clonazePAM [Klonopin] 1 mg PO BID PRN 30 Days #60 tablet 07/16/18 [Rx] hydrOXYzine pamoate [HydrOXYzine Pamoate] 50 mg PO BID PRN #60 capsule 07/16/18 [Rx] risperiDONE [RisperDAL] 1 mg PO HS #30 tablet 07/16/18 [Rx] traZODone [TraZODone] 50 mg PO HS PRN #30 tablet 07/16/18 [Rx] Allergy/AdvReac Type Severity Reaction Status Date / Time cephalexin Allergy Severe Hives Verified 05/11/18 10:35 fluticasone [From Flonase] Allergy Hives Verified 05/11/18 10:35 Results Procedures and tests throughout hospitalization: Completed Lab Orders Category Date Time Status Acetaminophen Stat Lab 07/10/18 14:00 Completed Basic Metabolic Panel Stat Lab 07/10/18 14:00 Completed Blood Alcohol [Ethanol] Stat Lab 07/10/18 14:00 Completed Complete Blood Count [HEME] Stat Lab 07/10/18 14:00 Completed Drug Screen, Urine [UCHEM] Stat Lab 07/10/18 14:50 Completed Hepatic Panel Stat Lab 07/10/18 14:00 Completed Lipase Stat Lab 07/10/18 14:00 Completed Humble Stat Lab 07/10/18 14:00 Completed Test Result, Urine [URIN] Stat Lab 07/10/18 14:50 Completed Salicylate Stat Lab 07/10/18 14:00 Completed Urinalysis Reflex Cult & Micro [URIN] Stat Lab 07/10/18 14:50 Completed Completed Microbiology Orders Category Date Time Status Culture,Urine [RM] Stat Lab 07/10/18 14:50 Completed Provider Date of admission: 07/10/18 19:04 Primary care physician: PCP NONE Discharging clinician: Pooja Christianson Psychiatry Exam - Constitutional Vitals: Temp Pulse Resp BP Pulse Ox 98.2 F 89 16 128/94 98 07/15/18 21:00 07/15/18 21:00 07/15/18 21:00 07/15/18 21:00 07/15/18 21:00 General appearance: age & developmentally appropriate, well-groomed, well- nourished - Musculoskeletal Gait: normal Station: relaxed Strength & Tone: normal for patient - Psychiatric Patient Orientation: Yes Person, Yes Time, Yes Place Level of alertness: Alert Behavior: calm, cooperative Psychomotor activity: Normal Eye Contact: Maintains Eye Contact Mood Description: Euthymic/stable Patient description of mood: ok Affect description: congruent with mood, full range Speech Volume: Normal Speech pattern: normal rate, normal rhythm, normal tone, fluent, spontaneous Language & Vocabulary: consistent with education Thought Process: Linear, Goal Oriented Thought Content: No Suicidal ideation, No Homicidal ideation, No Overt delusions Perceptual Disturbances: No Auditory hallucinations, No Visual hallucinations Attention Span Ability: Capable of Focused Attention Memory Description: Grossly Intact Patient Reliability: Reliable Historian Fund of knowledge: Yes abstraction ability, Yes aware of current events Intelligence Estimate: Average Judgment: Good Insight: Full Hospital Course Hospital course: Ms. Pastor is a 33 year old female who was admitted for psychosis and mood lability. She had extreme tearfulness and was disorganized. She felt that she was going [facility]. Her hospital stay there were issues with her in-laws and friends and she felt were both trying to take advantage of her and it was difficult to discern what was legitimate. Her medic ations were adjusted and lithium was restarted.Patient was educated of diagnosis and the risk-benefit side effects of this alternative treatment options and was monitored for responsiveness and side effects. Mood anxiety sleep and appetite interest improved as did future orientation. Self-harm thoughts subsided, thinking cleared, psychosis resolved, and mood stabilized. Patient was able to attend both individual and group therapy sessions as well as meet with the psychiatrist daily and urged to discuss any medication or treatment issues or other concerns. The patient was educated primarily by verbal means about their diagnosis and manifestations in their life. The option for treatment including group and individual therapy programming was offered to the patient in addition to the use of medications with all their potential risks, benefits, and side effects as well as the risks of not taking medication and non-adhereance were discussed with the patient at length. The patient was given the opportunity to ask questions and was noted to participate in the treatment in the planning process. The patient felt ready and eager to be discharged from the inpatient psychiatric unit to continue on with treatment as an outpatient. The patient agreed that is they were safe for this disposition. The patient was considered to be able to participate in informed consent and decision making with respect to medical, legal, and financial issues of the time of discharge. At the time of discharge the patient adamantly denied any concerns for lethality including suicidal or homicidal thoughts ideations or plans and was future oriented toward ongoing mental health care, medical follow-up and sobriety. Time spent discussing smoking cessation with patient: 3 to 10 minutes Does patient wish to continue nicotine replacement upon disc: No - Time Spent with Patient Total time spent providing and/or coordinating discharge services: 20 Less than 30 minutes Specific discharge activities: Interval history reviewed. Available labs reviewed . Psychotherapy provided. Patient had an opportunity to ask questions and address concerns. Patient was in agreement with the treatment plan. The risks benefits and side effects of medications were discussed with the patient, including alternatives and treatment. The patient was educated on the abstaining from any alcohol or illicit substances, following up with all scheduled appointments, and taking all medications as prescribed. Assessment and Plan - Patient/Caregiver Discharge Instructions Activity: resume usual activities as tolerated Diet: regular diet Additional Instructions: Continue current medications. Follow up with outpatient mental health. Encourage continued therapy in a group or individual setting. The patient was discharged to home. - Follow up Plan Follow up with: NONE,PCP [Primary Care Provider] - Functional capacity at discharge: independent ambulation Overall status at discharge: Stable Disposition: Home, Self-Care Quality - Multiple Antipsychotics Patient discharged on 2 or more antipsychotic medications: No Procedures - Procedures Procedures: Medication Management, Crisis Stabilization, Supportive Therapy, Group Therapy, Psychoeducational Therapy
[2018-07-16] MEDS: Famotidine 20 MG TABLET PO SCH (08:55)
[2018-07-16] MEDS: Loratadine 10 MG TABLET PO SCH (08:55)
[2018-07-16] MEDS: Venlafaxine XR (24 HR) 150 MG CAP.ER.24H PO SCH (08:55)
[2018-07-16 11:30] VITALS: BP 120/75
== END 2018-07-16 16:45 | disposition home or self-care (01) | DRG 750 ==
LOC: EMEROOARM 13:12 → 1ANU 19:04 → SUATTDRO 19:04 → 1ANU 20:58
PROVIDERS: ADMIT Psychiatry & Neurology Psychiatry; ATTEND Psychiatry & Neurology Psychiatry